=== PATIENT | female | born 1925 | race Caucasian/White ===

== ENCOUNTER 2016-07-13 08:38 | Inpatient (IN) | payer MEDICARE ==
[2016-07-14] MEDS: ACETAMINOPHEN 500 MG TABLET PO PRN (08:00)
--- NOTE | 2016-07-14 08:48 | Rehab Evaluation ---
Patient Information - Patient Information Diagnosis: Fall, Atrial Fibrillation, Dehydration Ordered Treatment: OT Evaluate and Treat Status: Initial Evaluation History: Detail (Patient admitted to on 07/13/16 for further functional improvment and strengthening in order to return home safely.) Past Med/Umesh Hx Detail: Detail (Pt received pin insertion through R hip w/ pins now placing pressure through acetabulum causing increased pain during sit<> stand t/f's.) Past Medical/Surgical Hx: PAST MEDICAL/SURGICAL HISTORY Past Surgical History R Hip surgery with pins placed 2004; Upper back surgery-non malignant tumor-spine? ; PMH - Respiratory Hx Respiratory Disorders No PMH - Cardiovascular Hx Cardiovascular Disorders No Comment: A-Fib found today/unknown onset PMH - Neuro Hx Neurological Disorders No PMH - GI Hx Gastrointestinal Disorders No PMH - Hx Genitourinary Disorders No PMH - Endocrine Hx Endocrine Disorders No PMH - Musculoskeletal Hx Musculoskeletal Disorders Yes Hx Arthritis Yes PMH - Psych Hx Psychiatric Problems No PMH - Hematology/Oncology Hx Hematology/Oncology No Disorders Premorbid Status: Detail (Patient reports to have fallen in driveway in past that resulted in hip replacement. Patient reports that she was doing well after hip sx and was able to complete all ADL's prior to admission.) Social History: Detail (Patient lives alone in a 2 story farmhouse with 40 acres. She has 2 steps to enter with a railing on one side. Bedroom and bathroom are on main floor of home. She has a tub/shower combo with shower chair but usually stands to shower. There are no grab bars in bathroom and patient has a standard toilet. Ambulates using quad cane at home but started using 2 canes to amb within the home. Patient reports she was ind w/ all home mgmt, meal prep, and laundry. She has 1 daughter who is willing to assist if needed but prefers to remain ind.) Precautions: [place], Fall - Time With Patient Total Time Spent With Patient (Min): 35 Subjective Information - Subjective Information Per Patient Objective Data - Pain Pain Present: Yes (could not rate. Pain in R hip w/ sit<>stand t/f's. Resolved per patient report once sitting.) - Mental Status Patient Orientation: Oriented x3 - Visual Perception Appears within normal limits for therapeutic activities - ROM Not within normal limits (Limited with B shld flex & digit ROM as well as opposition.) - Strength/Tone Not within normal limits (B shld flex and ext: 3+/5; Elbow flex/ext 4-/5 B. 3+/ 5 B shld abd; Weakness B gross grasp.) - Coordination Appears within normal limits for therapeutic activities - Bed Mobility Needs Assist (Pt required min A for lifting upper body off bed in transition from supine to SS EOB.) - Transfers Needs Assist (Min A and mod v/c's for hand placement when using walker when moving SS EOB into Standing w/ 2 WW. Gait belt used throughout evaluation.) - Balance Balance Sitting: Fair Balance Standing: Fair - Sensation Intact - Gait Detail (Pt amb w/ 2WW and CGA to and from Bathroom for drsg/toileting.) - ADL's/IADL's Detail (Pt was sleeping upon arrival but willing to participate once awoken. Patient stating throughout evaluation "I feel weaker today. I was walking and moving much better yesterday." Ind w/ gown removal once ties undone. Ind w/ t- shirt don. Dep underpant (brief)/pant don (however, patient appeared more fatigued today and was donning tight legging type pants. She may require less assistance then documented here. Will continue to assess). Amb SS EOB <> raised commode over toilet seat in BR. Pt stated she didn't have to use bathroom after all. Ind w/ brief/pant laborer pullet farm hips w/ v/c's to maintain one hand on walker 2 ^ postural sway and decreased safety with no UE support. Pt refused teeth brushing, hair care at this time.) Therapy Assessment - Therapy Assessment Detail (Pt presents with decreased functional status in ADLs, decreased mobility , decreased balance, decreased knowledge of safety with walker use, and BUE weakness. She would benefit from further OT to address limitations in UE strength and decreased ADL status.) Problem List - Problem List Occupational Therapy Problem List: Detail (1. decreased ind w/ ADLs 2. weakness BUE 3. decreased ind w/ bed mob 4. decreased endurance) Goals - Goals Occupational Therapy Goals: 1. Pt to be ind w/ toileting. 2. Pt to be ind w/ LB drsg with AD if needed. 3. Pt to be ind to walk household distances using 2WW. 4. Pt to be ind w/ bed mobility. 5. Pt to be grossly 4/5 MMT BUE within available ROM Prognosis - Prognosis Good Plan - Plan Occupational Therapy Plan: Patient to be seen by OT 2-4x a week M-F
--- NOTE | 2016-07-14 09:28 | Rehab Evaluation ---
Patient Information - Patient Information Diagnosis: Fall, Atrial Fibrillation, Dehydration Ordered Treatment: PT Evaluate and Treat Status: Initial Evaluation History: Detail (Patient admitted to on 07/13/16 for further functional improvment and strengthening in order to return home safely.) Past Med/Umesh Hx Detail: Detail (Pt received pin insertion through R hip w/ pins now placing pressure through acetabulum causing increased pain during sit<> stand t/f's.) Past Medical/Surgical Hx: PAST MEDICAL/SURGICAL HISTORY Past Surgical History R Hip surgery with pins placed 2004; Upper back surgery-non malignant tumor-spine? ; PMH - Respiratory Hx Respiratory Disorders No PMH - Cardiovascular Hx Cardiovascular Disorders No Comment: A-Fib found today/unknown onset PMH - Neuro Hx Neurological Disorders No PMH - GI Hx Gastrointestinal Disorders No PMH - Hx Genitourinary Disorders No PMH - Endocrine Hx Endocrine Disorders No PMH - Musculoskeletal Hx Musculoskeletal Disorders Yes Hx Arthritis Yes PMH - Psych Hx Psychiatric Problems No PMH - Hematology/Oncology Hx Hematology/Oncology No Disorders Premorbid Status: Detail (Patient reports to have fallen in driveway in past that resulted in hip replacement. Patient reports that she was doing well after hip sx and was able to complete all ADL's prior to admission.) Social History: Detail (Patient lives alone in a 2 story farmhouse with 40 acres. She has 2 steps to enter with a railing on one side. Bedroom and bathroom are on main floor of home. She has a tub/shower combo with shower chair but usually stands to shower. There are no grab bars in bathroom and patient has a standard toilet. Ambulates using quad cane at home but started using 2 canes to amb within the home. Patient reports she was ind w/ all home mgmt, meal prep, and laundry. She has 1 daughter who is willing to assist if needed but prefers to remain ind.) Precautions: [place], Fall - Time With Patient Total Time Spent With Patient (Min): 25 Treatment Procedures: Detail (PT Initial Evaluation) Subjective Information - Subjective Information Per Patient (The patient complains of a "funny sensation and soreness in R hip and lower back, not pain".) Objective Data - Mental Status Patient Orientation: Oriented x3 - ROM Not within normal limits (The patient has bilateral hip PROM limitations. R hip flexion aprox. 45 degrees, abduction 5 degrees, IR And ER 0 degrees, L hip flexion aprox 65 degrees, ER and IR 5 to 10 degrees, abduction 10 to 15 degrees. Knee and ankle ROM are WFL.) - Strength/Tone Not within normal limits (LE strength is as follows as tested in a seated position and within range of motion limitations: Bilateral hip adductiors 4+/5 , R hip abductors 3+/5, L 4/5, R hip flexors 3-/5, L 3+/5, hip rotators and extensors were NT, B knee flexors 3/5, B knee extensors 4+/5,B ankle dorsiflexors 4+/5.) - Bed Mobility Needs Assist (The patient is able to achieve sit to supine independently. The patient required Mod PA of 2 for scooting up in bed.) - Transfers Needs Assist (The patient requires CG/minimal PA with sit to and from stand transfer, in part due to hip ROM limitations.) - Balance Balance Sitting: Fair (The patient is able to sit without support but leans back with her trunk due to hip ROM limitations.) Balance Standing: Poor (The patient used a front wheeled walker for support when standing.) - Gait Detail (The patient ambulated with wheeled walker with CG of safety 75 feet x 1. The pateint's gait pattern is characterized by toeing out, decreased weight bearing on the R and forward trunk lean.) Therapy Assessment - Therapy Assessment Detail (The patient presents to PT with decreased LE strength, decreased hip AROM, impaired balance,gait deviations, and difficlty with transfers. The patient is highly motivated to return to home. The patient may have some mobility limitations due to decreased hip ROM.) Problem List - Problem List Physical Therapy Problem List: Detail (1) LE weakness 2) Loss of LE ROM 3) Assistance with transfers and bed mobility 4) Limited ambulation distance and transfers 5) Impaired Balance) Goals - Goals Physical Therapy Goals: 1) The patient will ambulate independently /supervision with wheeled walker distances of 150 feet plus. 2) The patient will be independent with alltransfers. 3) The patient will safely ambulate 2 stairs with CG of 1. 4) Increase LE strength by 1/3 to 1 full muscle grade. 5) Formally assess the patient's balance if tolerated. Prognosis - Prognosis Good (To reach PT goals.) Plan - Plan Physical Therapy Plan: PT M-F 1 to 2 times a day for LE strengthening, ROM and balance exercises, transfer training, bed mobility and gait training.
[2016-07-14] MEDS: ASPIRIN 81 MG TABEC PO SCH (09:59)
--- NOTE | 2016-07-14 22:05 | History & Physical ---
History of Present Illness - Date Date of Service for History & Physical: 07/14/16 - History of Present Illness Admitting Diagnosis: deconditioning due to weakness and pain History of Present Illness: 89yo F transitioned to sub acute rehab for continuing work with PT/OT. Patient initially suffered a fall in her home 07/10/16 Patients had not following with a primary care provider in many years; patient reported last seeing provider in 2006 or 2007. Since hospital admission pt has newly established with [facility] family practice clinic for primary care. Patient denies health problems at her baseline but does report history of fall 11year ago resulting in right hip replacement; due to this injury patient suffers from chronic bilateral hip (worse in right hip) and pelvic pain. Patient [place]. At patients baseline she is independent will all acts of daily living but over the last few months she has had difficulty showering and cleaning her home. Patient has a daughter that frequently tries to reach out to help her mother but patient is stubborn and has even gone to the extreme of locking her daughter out of her home. Patient and family are very concerned about patients fall risk and safety at home when she is this weak. Patient presented to [facility] ED after a fall in her home on 07/10/16. Fracture was ruled out through imaging studies. But upon cardiac evaluation patient was found to be in atrial fibrillation; because pt had not seen a provider in many years it was unknown of a-fib was acute onset or chronic. [facility] cardiology Dr. Sanders consulted for a-fib; per cardiology recommendation patient is to continue daily ASA but is not a good candidate for further anticoagulation, rhythm or rate control; out-patient echocardiogram recommended to determine patients baseline. Over hospital admission PT/OT was consulted due to patients weakness and bilateral hip pain. After therapy evaluation it was noted that patient would likely benefit from continued therapy and was a good candidate for YENY. Today patient continues to feel weak but is looking forward to starting PT/OT. After discussion with patient and her daughter the goal at this time will be for patient to return home to independent living after YENY is finished. Goals will be to build strength and endurance through work with PT/OT; nutrition consult; establish with PCP ([facility] family practice); coordinate out-patient follow up with specialties when appropriate. Vitals WNL. Labs continue to show elevated BUN 34 and Cr 1.3; otherwise labs are grossly unremarkable for acute process. PCP: [facility] family practice (newly established patient) General - Cognitive Patterns Speech: Soft Thought Process: Intact Thought Content: Normal Orientation: Oriented x3 - Communication Preferred Language?: [place] [employer] Required: No Level of Education: Grade 9-11 Preferred Method of Learning: Seeing, Doing Comprehension Ability: No Impairment Able to Read: Yes Able to Write: Yes Select best description of speech pattern: Clear Speech Ability to express ideas and wants: Usually Understood Understanding verbal content: Usually Understands - Mood and Behavior Patterns Appearance: Well Groomed Mood: Normal Attitude: Cooperative Motor Activity: Calm Affect: Appropriate Hallucinations: Denies - Psychosocial Well-Being Usual Living Arrangement: Alone - Physical Functioning Activity Level: Up with assist x1 Turning: Self ad janelle ROM Ability: Moves all extremities Assistive Devices: 2 Wheel Walker Ambulation Ability: Needs Assist Bed Mobility: Independent Transfer Ability: Needs Assist Bathing Ability: Needs Assist Personal Hygiene: Needs Assist Dressing Ability: Needs Assist Eating (Feeding) Ability: Independent Toileting Ability: Needs Assist Administer Own Medication: Needs Assist - Continence Bowel Pattern: Constipated Bladder Pattern: Normal - Dental Status Unable to examine: No Broken or loosely fitting full or partial dentures: No No natural teeth or tooth fragment(s) (edentulous): No Abnormal mouth tissue (ulcers, masses, oral lesions, etc.): No Obvious or likely cavity or broken natural teeth: No Inflamed or bleeding gums or loose natural teeth: No Mouth/facial pain, discomfort or difficulty chewing: No - Nutrition Screening Poor oral intake > 1 week: No Unplanned weight loss in specified time frame: No Nutrition Support via tube feedings or parenteral nutrition: No Pressure Ulcer: No Significantly underweight define as BMI <18.5 kg/m2: No Albumin <2.5mg/dL: No Persistent nausea/vomiting/diarrhea >3 days: No Difficulty chewing/swallowing/mouth sores: No Admitting Diagnosis: No Nutrition Risk Score: Low Risk Review of Systems Constitutional: Reports: As per HPI, Weakness. Denies: Chills, Fever, Malaise, Night sweats Eyes: Reports: As per HPI. Denies: Eye discharge, Eye pain ENT: Reports: As per HPI, Hearing loss. Denies: Congestion, Ear pain, Throat pain Respiratory: Reports: As per HPI. Denies: Cough, Dyspnea, Wheezes Cardiovascular: Reports: As per HPI. Denies: Chest pain, Edema, Palpitations Endocrine: Reports: As per HPI, Fatigue. Denies: Polydipsia, Polyuria Gastrointestinal: Reports: As per HPI. Denies: Abdominal pain, Nausea, Vomiting Genitourinary: Reports: As per HPI. Denies: Dysuria Musculoskeletal: Reports: As per HPI, Arthralgia, Back pain, Other (bilateral hip pain, worse in right hip ) Skin: Reports: Other (chronic lower extremity skin changes). Denies: Change in color, Pruritus, Rash Neurological: Reports: As per HPI, Abnormal gait (patient needs assitance with rising from seated position and transfers. Pt able to ambulate short distance with use of walker ), Weakness. Denies: Headache, Numbness, Tingling Psychiatric: Denies: Anxiety Hematological/Lymphatic: Denies: Blood Clots, Easy bleeding Past Medical History - SOCIAL HISTORY Smoking Status: Former smoker - SURGICAL HISTORY Past Surgical History: R Hip surgery with pins placed 2004; Upper back surgery- non malignant tumor-spine? ; - RESPIRATORY Hx Respiratory Disorders: No - CARDIOVASCULAR Hx Cardio Disorders: No Comment:: A-Fib found today/unknown onset - NEURO Hx Neuro Disorders: No - GI Hx GI Disorders: No - Hx Genitourinary Disorders: No - ENDOCRINE Hx Endocrine Disorders: No - MUSCULOSKELETAL Hx Musculoskeletal Disorders: Yes Hx Arthritis: Yes - PSYCH Hx Psych Problems: No - HEMATOLOGY/ONCOLOGY Hx Hematology/Oncology Disorders: No Family Medical History Any Significant Family History?: No Family Hx Comment (NOT TO BE USED IN PLACE OF ITEMS BELOW): unknown H&P Meds/Allergies - Allergies Allergies: Allergies Allergy/AdvReac Type Severity Reaction Status Date / Time Unable to Assess Allergy Unverified 07/10/16 19:07 - Home Medications Previous Rx's Medication Instructions Recorded Acetaminophen [Tylenol 500Mg Tab] 1,000 mg PO Q6H PRN #0 tablet 07/13/16 Aspirin Enteric-Coated [Ecotrin 81 mg PO DAILY tabec 07/13/16 (EC)] - Active Medications Active Medications: Current Medications Acetaminophen (Tylenol 500mg Tab) 1,000 mg PO Q6H PRN PRN Reason: PAIN/TEMP Last Admin: 07/14/16 08:00 Dose: 1,000 mg Aspirin (Ecotrin (Ec)) 81 mg PO DAILY TINY Last Admin: 07/14/16 09:59 Dose: 81 mg Physical Exam - Vital Signs Vital Signs: Vital Signs - Last 24 Hrs Temp Pulse Resp BP BP Pulse Ox 07/14/16 13:01 97.7 F 110/70 07/14/16 08:55 97.7 F 83 17 110/70 99 - General General Appearance: Alert, Oriented x3, Cooperative, No acute distress, Other ( cachectic appearance ) Limitations: No limitations - Head Head exam detail: negative: Abrasion, Contusion - Eye Eye exam: Normal appearance, EOMI. negative: Conjunctival injection Pupils: Normal accommodation - ENT ENT exam: Normal exam, Mucous membranes moist, Normal external ear exam, Normal orophraynx. negative: Mucous membranes dry Ear exam: Normal external inspection, External canal tenderness Nasal Exam: Normal inspection. negative: Active bleeding, Discharge, Sinus tenderness Mouth exam: Normal external inspection, Tongue normal. negative: Drooling Teeth exam: Dental caries, Other (poor dentition ) - Neck Neck exam: Normal inspection, Full ROM. negative: Tenderness - Respiratory Respiratory exam: Normal lung sounds bilaterally. negative: Accessory muscle use, Chest wall tenderness, Respiratory distress, Wheezes - Cardiovascular Cardiovascular Exam: Regular rate, Normal heart sounds, Irregular rhythm (a-fib) Peripheral Pulses: 2+: Radial (L) - GI/Abdominal GI/Abdominal exam: Soft, Normal bowel sounds. negative: Distended, Guarding, Tenderness - Rectal Rectal exam: Deferred - exam: Deferred - Extremities Extremities exam: Normal inspection, Tenderness (right hip), Other (chronic skin changes on bilateral lower legs ). negative: Calf tenderness - Back Back exam: Reports: Normal inspection. Denies: Rash noted - Neurological Neurological exam: Abnormal gait (patient currently 2person assist to stand from sitting position ), Alert, CN II-XII intact, Oriented X3 - Psychiatric Psychiatric exam: Normal affect, Normal mood - Skin Skin exam: Dry, Intact, Normal color, Warm. negative: Cyanosis, Diaphoretic Discharge Potential - Discharge Needs Community Services Used Prior to Admission: None Patient Discharge Plan Description: Return Home Community Services Needed at Discharge: Home Health Nurse Plan - Swing Bed Certification Initial Certification Due: 07/13/16 14 Day Re-Cert Due: 07/27/16 44 Day Re-Cert Due: 08/26/16 74 Day Re-Cert Due: 09/25/16 - Detailed Diagnosis and Plan (1) Generalized weakness Current Visit: No Status: Acute Base Code: R53.1 - WEAKNESS Comment: 07/14/16: - PT/OT evaluation done 07/12/16. Patient continue to participate in therapy Sun-Sun. Goals will be to improve strength, balance, gate , and general mobility - Patients insurance will cover 7days to 2weeks of sub acute rehab. - Nutritional consult done during in-pt stay. Patient continues to drink nutritional shakes frequently. (2) Chronic right hip pain Current Visit: No Status: Acute Base Code: M25.551 - PAIN IN RIGHT HIP; G89.29 - OTHER CHRONIC PAIN Comment: 07/14/16: - Patient continues to complain of chronic righ hip and pelvic pain; she states it is difficult to find a comfortable position - Bilateral hip and pelvic xray showed post operative changes likely due to old hip; severe arthritic changes with a bone on bone appearance; one fixation screw may now extend into right acetabulum - Patient will participate in PT/OT Mon-Sun - Tylenol 1000mg q6h PRN ordered for pain but patient does not like to take medications and rarely takes the Tylenol. Patient has been enouraged to take a dose of Tylenol before PT/OT so that participation is not as painful - Patient scheduled for out-patient appointment with orthopedics Dr. Newby on 07/27/16 @12:30pm (3) Atrial fibrillation Current Visit: No Status: Acute Qualifiers: Atrial fibrillation type: unspecified Qualified Code(s): I48.91 - Unspecified atrial fibrillation Base Code: I48.91 - UNSPECIFIED ATRIAL FIBRILLATION Comment: 07/14/16: - likely chronic. Unchanged since hospital admission. - Cardiology Dr. Sanders evaluated patient on 07/11. Per cardiology recommendation will continue daily ASA - echocardiogram scheduled as an out-patient on 07/19/16 @12:30pm - patient continues to deny chest pain, SOB or palpitations (4) DVT prophylaxis Current Visit: No Status: Acute Base Code: [id number] - Comment: 07/14/16: SCDs ordered to be worn while pt in bed. Will also continue to encourage frequent ambulation (5) Skin texture changes Current Visit: Yes Status: Acute Base Code: R23.4 - CHANGES IN SKIN TEXTURE Comment: 07/14/16: Patient has chronic skin changes on bilateral lower extremities. - Patient will need appt with podiatry as an out-pt. Referral can be made through [facility]. Recommend specialty clinic or Dr. Mckeon office in [place], [place] (6) Overgrown toenails Current Visit: Yes Status: Acute Base Code: L60.2 - ONYCHOGRYPHOSIS Comment: 07/14/16: see above (7) Full code status Current Visit: No Status: Acute Base Code: Z78.9 - OTHER SPECIFIED HEALTH STATUS Comment: 07/14/16: Patient will remain full code status during current hospitalization
[2016-07-15] MEDS: ACETAMINOPHEN 500 MG TABLET PO PRN (09:07)
[2016-07-15] MEDS: ASPIRIN 81 MG TABEC PO SCH (09:07)
[2016-07-16] MEDS: ACETAMINOPHEN 500 MG TABLET PO PRN (09:10)
[2016-07-16] MEDS: ASPIRIN 81 MG TABEC PO SCH (09:10)
--- NOTE | 2016-07-17 07:54 | Occupational Therapy Tx Note ---
Occupational Therapy Tx Note - Treatment Note Tolerated: Fair Total Time Spent With Patient: 20 (ADL) Occupational Therapy Treatment Note: Detail (S: Pt up in recliner chair. O: Pt able to doff gown with assist to untie. Donned shirt with verbal cues, donned sweatpants with assist to start over both feet and pull partially up legs. Mod assist for sit to stand with walker and verbal cues. Pt leans back when attempting to stand. Pt able to static stand with walker and pull pants over hips. Max assist for slippers. A: Shivam hip/leg pain limiting patients ability to bend forward, mod assist for sit to stand, mod assist for LE dressing ) Occupational Therapy Problem List: Detail (1. decreased ind w/ ADLs 2. weakness BUE 3. decreased ind w/ bed mob 4. decreased endurance) Occupational Therapy Goals: 1. Pt to be ind w/ toileting. 2. Pt to be ind w/ LB drsg with AD if needed. 3. Pt to be ind to walk household distances using 2WW. 4. Pt to be ind w/ bed mobility. 5. Pt to be grossly 4/5 MMT BUE within available ROM Prognosis: Moderate Occupational Therapy Plan: Patient to be seen by OT 2-4x a week M-F
[2016-07-17] MEDS: ASPIRIN 81 MG TABEC PO SCH (09:58)
[2016-07-17] MEDS: ACETAMINOPHEN 500 MG TABLET PO PRN (11:16)
[2016-07-17] MEDS: DOCUSATE SODIUM 100 MG CAPSULE PO SCH (12:13)
--- NOTE | 2016-07-17 14:25 | Physical Therapy Tx Note ---
Physical Therapy Tx Note - Treatment Note Physical Therapy Tx Note: Detail (Patient refused physical therapy treatment due to too tired and needs to sleep.) Physical Therapy Problem List: Detail (1) LE weakness 2) Loss of LE ROM 3) Assistance with transfers and bed mobility 4) Limited ambulation distance and transfers 5) Impaired Balance) Physical Therapy Goals: 1) The patient will ambulate independently /supervision with wheeled walker distances of 150 feet plus. 2) The patient will be independent with alltransfers. 3) The patient will safely ambulate 2 stairs with CG of 1. 4) Increase LE strength by 1/3 to 1 full muscle grade. 5) Formally assess the patient's balance if tolerated. Physical Therapy Plan: PT M-F 1 to 2 times a day for LE strengthening, ROM and balance exercises, transfer training, bed mobility and gait training.
--- NOTE | 2016-07-17 20:51 | Swing Bed Certification/Recert ---
Initial Certification Due: 07/13/16 15 Day Re-Cert Due: 07/27/16 45 Day Re-Cert Due: 08/26/16 75 Day Re-Cert Due: 09/25/16 CERTIFICATION 3 CERTIFICATION OF PATIENT ADMISSION Required at time of admission. Due: 07/13/16 I certify that SNF services are required to be given on an inpatient basis because of the above named patient's need for prison care on a continuing basis for the condition(s) for which he/she was receiving inpatient hospital services prior to his/her transfer to the SNF. The patient's current needs for skilled care includes: [weakness, fall risk, need for daily PT/OT, chronic hip pain] Daniella Zamora 07/17/16
[2016-07-18 06:21] LABS: BASO % 0.7 % (0-6); EOS % 2.3 % (0-6); GRAN % 60.4 % (47-80); HEMATOCRIT 31.3 % (35.0-47.0); HEMOGLOBIN 9.9 gm/dl (11.6-16.0); LYMPH % 27.6 % (16-45); MEAN CELL VOLUME 94.3 fl (81-97); MEAN CORPUSCULAR HEMOGLOBIN 29.8 pg (27-33); MEAN CORPUSCULAR HGB CONC 31.6 g/dl (32-36); MEAN PLATELET VOLUME 10.2 fl (7.4-10.4); PLATELET COUNT 333 K/uL (130-400); RED BLOOD COUNT 3.32 M/uL (3.80-5.40); WHITE BLOOD COUNT W/O DIFF 7.3 K/uL (4.2-12.2)
[2016-07-18 06:33] LABS: ALB/GLOB RATIO 1.1 (1.1-1.8); ANION GAP 11.5 (7-16); BILIRUBIN,TOTAL 0.33 mg/dL (0.2-1.3); CARBON DIOXIDE 26.5 mmol/L (22-30); CREATININE 1.2 mg/dL (0.52-1.04); TOTAL PROTEIN 5.7 gm/dL (6.3-8.2)
--- NOTE | 2016-07-18 08:30 | Occupational Therapy Tx Note ---
Occupational Therapy Tx Note - Treatment Note Tolerated: Good, Fair Total Time Spent With Patient: 35 (ADL) Occupational Therapy Treatment Note: Detail (S: Pt supine in bed, ready to get up. O: Supine to sit with hospital bed rails, Indly. Sit to stand Indly with use of bed rail and walker. Amb to bathroom with CG assist and pulled down briefs with CG assist for balance. Pt able to sit with use of grab bar on wall. Toileted Indly. Doffed briefs with assist to anchor tack puller feet, donned clean briefs with assist to start over feet and lower legs. Stood from commode with mod difficulty with use of grab bar. Stood and pulled up briefs with CG assist, amb to sink with walker and had a small loss of balance. Able to wash face, hands at sink in standing. Amb back to chair with walker. Doffed gown with assist to untie, donned shirt Indly. Education provided re: use of wood planer for LE dressing. Pt able to don pants with wood planer and mod verbal cues , min physical assist. Sit to stand with min assist and pulled up pants Indly. Donned sock type slippers with max assist. A: Decreased balance with standing and gait, requires use of grab bar for sit to stand due to hip stiffness and pain, cont with LE ADL training with adaptive equipment) Occupational Therapy Problem List: Detail (1. decreased ind w/ ADLs 2. weakness BUE 3. decreased ind w/ bed mob 4. decreased endurance) Occupational Therapy Goals: 1. Pt to be ind w/ toileting. 2. Pt to be ind w/ LB drsg with AD if needed. 3. Pt to be ind to walk household distances using 2WW. 4. Pt to be ind w/ bed mobility. 5. Pt to be grossly 4/5 MMT BUE within available ROM Prognosis: Good Occupational Therapy Plan: Patient to be seen by OT 2-4x a week M-F
[2016-07-18] MEDS: DOCUSATE SODIUM 100 MG CAPSULE PO SCH (09:36)
[2016-07-18] MEDS: ASPIRIN 81 MG TABEC PO SCH (09:36)
[2016-07-18] MEDS: ACETAMINOPHEN 500 MG TABLET PO PRN (09:37)
--- NOTE | 2016-07-18 14:23 | Physical Therapy Tx Note ---
Physical Therapy Tx Note - Treatment Note Tolerated: Fair Total Time Spent With Patient: 20 Physical Therapy Tx Note: Detail (The patient was reluctant to participate in PT , however with encouragement of daughter, the patient got up for lunch. The patient was able to acheive supine to sit independently with use of railing. The patient required moderate PA sit to stand . The patient ambulated with CG of 1 with wheeled walker a distance of 5 feet x 1. The patient completed LE strengthening exercises including heelsides, LAQ , ankle pumps, hip abduction and adductor squeezes seated, all x 5 - 10 reps.) Physical Therapy Problem List: Detail (1) LE weakness 2) Loss of LE ROM 3) Assistance with transfers and bed mobility 4) Limited ambulation distance and transfers 5) Impaired Balance) Physical Therapy Goals: 1) The patient will ambulate independently /supervision with wheeled walker distances of 150 feet plus. 2) The patient will be independent with alltransfers. 3) The patient will safely ambulate 2 stairs with CG of 1. 4) Increase LE strength by 1/3 to 1 full muscle grade. 5) Formally assess the patient's balance if tolerated. Physical Therapy Plan: PT M-F 1 to 2 times a day for LE strengthening, ROM and balance exercises, transfer training, bed mobility and gait training.
--- NOTE | 2016-07-18 17:03 | Physical Therapy Tx Note ---
Physical Therapy Tx Note - Treatment Note Tolerated: Good Total Time Spent With Patient: 20 Physical Therapy Tx Note: Detail (The patient was awake in bed when PT arrived. The patient acheived supine to sit with minimal PA. The patient achieved sit to stand transfer with minimal to moderate PA, (the patient tends to lean back. ) The patient ambulated with wheeled walker 25 feet x 1 and 10 feet x1 with supervision, CG for safety . The patient was left up in chair with call light in reach. Nursing staff was notified.) Physical Therapy Problem List: Detail (1) LE weakness 2) Loss of LE ROM 3) Assistance with transfers and bed mobility 4) Limited ambulation distance and transfers 5) Impaired Balance) Physical Therapy Goals: 1) The patient will ambulate independently /supervision with wheeled walker distances of 150 feet plus. 2) The patient will be independent with alltransfers. 3) The patient will safely ambulate 2 stairs with CG of 1. 4) Increase LE strength by 1/3 to 1 full muscle grade. 5) Formally assess the patient's balance if tolerated. Physical Therapy Plan: PT M-F 1 to 2 times a day for LE strengthening, ROM and balance exercises, transfer training, bed mobility and gait training.
[2016-07-19] MEDS: ASPIRIN 81 MG TABEC PO SCH (09:03)
[2016-07-19] MEDS: ACETAMINOPHEN 500 MG TABLET PO PRN (09:03)
[2016-07-19] MEDS: DOCUSATE SODIUM 100 MG CAPSULE PO SCH (09:03)
--- NOTE | 2016-07-19 11:48 | Physical Therapy Tx Note ---
Physical Therapy Tx Note - Treatment Note Tolerated: Good Total Time Spent With Patient: 30 Physical Therapy Tx Note: Detail (The patient was up in chair when PT arrived. PT assisted patient in dressing. The patient was independent with upper body dressing and required assist with pants . The patient was able to pull up pants in standing with cg for safety. The patient continues to require moderate PA of 1 for stand to sit and cg and verbal cues for sit to stand. The patient ambulated 13 feet x 1 with CG for safety. The patient completed LE exercises seated including hip flexion x 5 reps, hip adductor squeezes , resisted hip abduction, LAQ, hamstring curls, ankle pumps all x 10 reps. The patient exhibited improved endurance for activity this am.) Physical Therapy Problem List: Detail (1) LE weakness 2) Loss of LE ROM 3) Assistance with transfers and bed mobility 4) Limited ambulation distance and transfers 5) Impaired Balance) Physical Therapy Goals: 1) The patient will ambulate independently /supervision with wheeled walker distances of 150 feet plus. 2) The patient will be independent with alltransfers. 3) The patient will safely ambulate 2 stairs with CG of 1. 4) Increase LE strength by 1/3 to 1 full muscle grade. 5) Formally assess the patient's balance if tolerated. Physical Therapy Plan: PT M-F 1 to 2 times a day for LE strengthening, ROM and balance exercises, transfer training, bed mobility and gait training.
--- NOTE | 2016-07-19 14:44 | Physical Therapy Tx Note ---
Physical Therapy Tx Note - Treatment Note Tolerated: Good Total Time Spent With Patient: 30 Physical Therapy Tx Note: Detail (Patient states right hip painful with movement. Patient transferred supine to sit independently. Patient transferred sit to and from stand CGA x1. Patient ambulated 13 feet with wheeled walker CGA x1. Patient transferred sit to and from stand CGA x1. Patient ambulated 13 feet with wheeled walker CGA x1. Patient performed the following exercises x10 reps each: seated marching, LAQ, seated heel raises, seated toe raises, adductor squeezes, dips, PNF D1 flexion diagonals with red theraband, PNF D1 extension diagonals with red theraband, and horizontal abduction with red theraband. Patient tolerated treatment well. Patient reports no increased complaints after treatment. Patient was left seated in chair with call light within reach.) Physical Therapy Problem List: Detail (1) LE weakness 2) Loss of LE ROM 3) Assistance with transfers and bed mobility 4) Limited ambulation distance and transfers 5) Impaired Balance) Physical Therapy Goals: 1) The patient will ambulate independently /supervision with wheeled walker distances of 150 feet plus. 2) The patient will be independent with alltransfers. 3) The patient will safely ambulate 2 stairs with CG of 1. 4) Increase LE strength by 1/3 to 1 full muscle grade. 5) Formally assess the patient's balance if tolerated. Prognosis: Good Physical Therapy Plan: PT M-F 1 to 2 times a day for LE strengthening, ROM and balance exercises, transfer training, bed mobility and gait training.
[2016-07-20] MEDS: ACETAMINOPHEN 500 MG TABLET PO PRN (09:15)
[2016-07-20] MEDS: DOCUSATE SODIUM 100 MG CAPSULE PO SCH (09:15)
[2016-07-20] MEDS: ASPIRIN 81 MG TABEC PO SCH (09:15)
--- NOTE | 2016-07-21 09:44 | Occupational Therapy Tx Note ---
Occupational Therapy Tx Note - Treatment Note Tolerated: Fair Total Time Spent With Patient: 30 (ADL) Occupational Therapy Treatment Note: Detail (S: Pt awake and lying supine in bed. O: Supine to sit with use of bed rails and moderate difficulty. Sit to stand with significant difficulty due to decreased ability to bend forward at hips. Amb to bathroom with 2 wheeled walker and CG assist. Stand to sit with use of grab bar and toileted Indly on raised commode seat. Sit to stand from commode with grab bar and able to pull up briefs with CG assist. Amb to chair with walker and SBA. Doffed gown with assist to untie, donned shirt Indly, donned PJ bottoms with quality control operator and min verbal cues. Sit to stand with min assist and able to pull up pants with min assist. Pt very short of breath and fatigued with activity. A: Significant impairment of hip flexion limits Ind with sit to stand) Occupational Therapy Problem List: Detail (1. decreased ind w/ ADLs 2. weakness BUE 3. decreased ind w/ bed mob 4. decreased endurance) Occupational Therapy Goals: 1. Pt to be ind w/ toileting. 2. Pt to be ind w/ LB drsg with AD if needed. 3. Pt to be ind to walk household distances using 2WW. 4. Pt to be ind w/ bed mobility. 5. Pt to be grossly 4/5 MMT BUE within available ROM Prognosis: Moderate Occupational Therapy Plan: Patient to be seen by OT 2-4x a week M-F
[2016-07-21] MEDS: DOCUSATE SODIUM 100 MG CAPSULE PO SCH (11:01)
[2016-07-21] MEDS: ASPIRIN 81 MG TABEC PO SCH (11:01)
--- NOTE | 2016-07-21 16:04 | Physical Therapy Tx Note ---
Physical Therapy Tx Note - Treatment Note Tolerated: Good Total Time Spent With Patient: 20 Physical Therapy Tx Note: Detail (Patient was awake in bed side chair upon arrival for PT. Patient was mod assist+1 with sit to stand transfer. The patient ambulated on level surface with front wheeled walker and CGA+1 for ~25 feet. Patient reported that sit to stand transfer and ambulation was more challenging than last PT treatment. The patient was min assist with stand to sit transfer. The patient then completed the following seated LE exercises: marching X10 bilat, LAQ X10 Bilat, ankle pumps X10 bilat, hip adduction X10 bilat with pillow, hip abduction X10 with manual resistance from PT, hamstring curls X10 bilat with red theraband. Patient was left in bed side chair with LE' s elevated and nurse call light next to her.) Physical Therapy Problem List: Detail (1) LE weakness 2) Loss of LE ROM 3) Assistance with transfers and bed mobility 4) Limited ambulation distance and transfers 5) Impaired Balance) Physical Therapy Goals: 1) The patient will ambulate independently /supervision with wheeled walker distances of 150 feet plus. 2) The patient will be independent with alltransfers. 3) The patient will safely ambulate 2 stairs with CG of 1. 4) Increase LE strength by 1/3 to 1 full muscle grade. 5) Formally assess the patient's balance if tolerated. Physical Therapy Plan: PT M-F 1 to 2 times a day for LE strengthening, ROM and balance exercises, transfer training, bed mobility and gait training.
[2016-07-22] MEDS: DOCUSATE SODIUM 100 MG CAPSULE PO SCH (10:06)
[2016-07-22] MEDS: ASPIRIN 81 MG TABEC PO SCH (10:06)
[2016-07-23] MEDS: DOCUSATE SODIUM 100 MG CAPSULE PO SCH (10:53)
[2016-07-23] MEDS: ASPIRIN 81 MG TABEC PO SCH (10:53)
--- NOTE | 2016-07-24 07:43 | Occupational Therapy Tx Note ---
Occupational Therapy Tx Note - Treatment Note Tolerated: Good Total Time Spent With Patient: 20 (ADL) Occupational Therapy Treatment Note: Detail (S: Pt up in bathroom. O: Pt completed toileting Indly. She was able to stand at sink and wash hands Indly. Amb to chair with 2 wheeled walker and SBA. Doffed PJ bottoms with color artist Indly. Donned clean briefs and PJ bottoms with color artist and mild difficulty. She was able to recall correct dressing technique and complete dressing Indly. Sit to stand x 2 Indly although she continues to have difficulty with this due to decreased hip flexion. A: Modified Ind with donning/doffing pants using color artist, Sit to stand Ind although she continues to have difficulty with this due to hip flexion limitations.) Occupational Therapy Problem List: Detail (1. decreased ind w/ ADLs 2. weakness BUE 3. decreased ind w/ bed mob 4. decreased endurance) Occupational Therapy Goals: 1. Pt to be ind w/ toileting. 2. Pt to be ind w/ LB drsg with AD if needed. 3. Pt to be ind to walk household distances using 2WW. 4. Pt to be ind w/ bed mobility. 5. Pt to be grossly 4/5 MMT BUE within available ROM Prognosis: Good Occupational Therapy Plan: Patient to be seen by OT 2-4x a week M-F
[2016-07-24] MEDS: DOCUSATE SODIUM 100 MG CAPSULE PO SCH (10:46)
[2016-07-24] MEDS: ASPIRIN 81 MG TABEC PO SCH (10:47)
--- NOTE | 2016-07-24 15:43 | Physical Therapy Tx Note ---
Physical Therapy Tx Note - Treatment Note Tolerated: Good Total Time Spent With Patient: 30 Physical Therapy Tx Note: Detail (The patient was in bed when PT arrived. The patient acheived modified (with head of bed up) supine to sit with use of railing, independently, with gaurded movements due to hip pain. The patient was independent with sit to and from stand and ambulated to bathroom with wheeled walker with supervision for safety only. The patient was independent with toileting and with toilet transfer. The patient ambulated with wheeled walker a total of 75 feet x 1 with supervision for safety only. The patient was independent with stand to sit with complaints of R hip pain/" a funny sensation". The patient's hip AROM was unchanged. The patient has had some improvement with knee flexor strength from 3/5 to 3+/5. All other muscle group strength are unchanged. The patient has been more consistent with independence with bed mobility and transfers. The patient continues to have some difficulty with sit to stand due to limited hip ROM. The patient's ability to ambulate long distances is variable dependent on pain level in R hip.) Physical Therapy Problem List: Detail (1) LE weakness 2) Loss of LE ROM 3) Assistance with transfers and bed mobility 4) Limited ambulation distance and transfers 5) Impaired Balance) Physical Therapy Goals: 1) The patient will ambulate independently /supervision with wheeled walker distances of 150 feet plus. 2) The patient will be independent with alltransfers. 3) The patient will safely ambulate 2 stairs with CG of 1. 4) Increase LE strength by 1/3 to 1 full muscle grade. 5) Formally assess the patient's balance if tolerated. Physical Therapy Plan: PT M-F 1 to 2 times a day for LE strengthening, ROM and balance exercises, transfer training, bed mobility and gait training.
[2016-07-25] MEDS: ACETAMINOPHEN 500 MG TABLET PO PRN (09:47)
[2016-07-25] MEDS: ASPIRIN 81 MG TABEC PO SCH (09:47)
[2016-07-25] MEDS: DOCUSATE SODIUM 100 MG CAPSULE PO SCH (09:47)
--- NOTE | 2016-07-25 09:56 | Occupational Therapy Tx Note ---
Occupational Therapy Tx Note - Treatment Note Tolerated: Good Total Time Spent With Patient: 45 (ADL) Occupational Therapy Treatment Note: Detail (S: Pt supine, finishing breakfast. O: Supine to sit Ind with mod difficulty. Sit to stand with CG assist and amb to toilet with 2 wheeled walker and SBA. Toileted Indly, using grab bar to stand. Amb to shower bench with CG assist and walker. Doffed PJ bottoms, brief and slippers with detail supervisor and verbal cues. Doffed shirt Indly. Pt completed showering in sitting and standing with hand held shower, she was Ind with upper body, hair, hayes-area (with CG assist with standing), upper legs , attempted feet/lower legs with washcloth wrapped around detail supervisor. She was able to partially wash lower legs. Dried self Indly with assist for feet/lower legs. Sit to stand from bench with mod assist and amb to EOB with walker and CG assist. Donned shirt Indly, therapist donned slippers, briefs and pants as pt was very fatigued and not feeling well. Pt sit to supine with min assist. Combed hair Indly. A: Max assist for lower leg/feet bathing and dressing, mildly decreased balance today requiring CG assist.) Occupational Therapy Problem List: Detail (1. decreased ind w/ ADLs 2. weakness BUE 3. decreased ind w/ bed mob 4. decreased endurance) Occupational Therapy Goals: 1. Pt to be ind w/ toileting. 2. Pt to be ind w/ LB drsg with AD if needed. 3. Pt to be ind to walk household distances using 2WW. 4. Pt to be ind w/ bed mobility. 5. Pt to be grossly 4/5 MMT BUE within available ROM Prognosis: Good Occupational Therapy Plan: Patient to be seen by OT 2-4x a week M-F
--- NOTE | 2016-07-25 15:30 | Physical Therapy Tx Note ---
Physical Therapy Tx Note - Treatment Note Physical Therapy Problem List: Detail (1) LE weakness 2) Loss of LE ROM 3) Assistance with transfers and bed mobility 4) Limited ambulation distance and transfers 5) Impaired Balance) Physical Therapy Goals: 1) The patient will ambulate independently /supervision with wheeled walker distances of 150 feet plus. 2) The patient will be independent with alltransfers. 3) The patient will safely ambulate 2 stairs with CG of 1. 4) Increase LE strength by 1/3 to 1 full muscle grade. 5) Formally assess the patient's balance if tolerated. Physical Therapy Plan: PT M-F 1 to 2 times a day for LE strengthening, ROM and balance exercises, transfer training, bed mobility and gait training.
--- NOTE | 2016-07-25 15:40 | Physical Therapy Tx Note ---
Physical Therapy Tx Note - Treatment Note Tolerated: Good Total Time Spent With Patient: 20 Physical Therapy Tx Note: Detail (The patient was in bed when PT arrived. The patient was able to achieve supine to sit transfer independently. The patient had some difficulty with sitting balance on bed. The patient was CG for safety with sit to stand transfer. The patient ambulated a distance of 80 feet x 1 with supervision for safety only. The patient ambulated at a faster speed then initially. The patient returned to sit in a chair. The patient completed the following LE strengthening exercises: hip marching, LAQ, ankle pumps, hip adductor squeezes, hip abduction, hamstring curls, gluteal sets all x 10 reps. Call light was in reach and tray placed in front of patient.) Physical Therapy Problem List: Detail (1) LE weakness 2) Loss of LE ROM 3) Assistance with transfers and bed mobility 4) Limited ambulation distance and transfers 5) Impaired Balance) Physical Therapy Goals: 1) The patient will ambulate independently /supervision with wheeled walker distances of 150 feet plus. 2) The patient will be independent with alltransfers. 3) The patient will safely ambulate 2 stairs with CG of 1. 4) Increase LE strength by 1/3 to 1 full muscle grade. 5) Formally assess the patient's balance if tolerated. Physical Therapy Plan: PT M-F 1 to 2 times a day for LE strengthening, ROM and balance exercises, transfer training, bed mobility and gait training.
[2016-07-26] MEDS: DOCUSATE SODIUM 100 MG CAPSULE PO SCH (10:22)
[2016-07-26] MEDS: ASPIRIN 81 MG TABEC PO SCH (10:22)
[2016-07-26] MEDS: ACETAMINOPHEN 500 MG TABLET PO PRN (10:22)
--- NOTE | 2016-07-26 11:01 | Physician Progress Note ---
Subjective - Date Date of Progress Note: 07/26/16 - Admitting Diagnosis Diagnosis: deconditioning due to weakness and pain - Subjective Events since last encounter: sitting up in her chair comfortably. denies any concerns. strength improving per PT/OT care conference today with family. Nursing Care Plan Problem List Activity Intolerance (Swing Bed) Start: 07/13/16 15: 12 Freq: Status: Active Created 07/13/16 15:12 SS (Rec: 07/13/16 15:12 SS [id number]) Knowledge Deficit (Swing Bed) Start: 07/13/16 15: 12 Freq: Status: Complete Created 07/13/16 15:12 SS (Rec: 07/13/16 15:12 SS [id number]) Edit Status 07/24/16 16:39 SAF (Rec: 07/24/16 16:39 SAF [id number]) Active=>Complete Pain (Swing Bed) Start: 07/13/16 15: 12 Freq: Status: Active Created 07/13/16 15:12 SS (Rec: 07/13/16 15:12 SS [id number]) Risk For Falls (Swing Bed) Start: 07/18/16 04: 16 Freq: Status: Complete Created 07/18/16 04:16 MMN (Rec: 07/18/16 04:16 MMN [id number]) Edit Status 07/20/16 15:18 KMC (Rec: 07/20/16 15:18 KMC [id number]) Active=>Complete General - Cognitive Patterns Speech: Soft Thought Process: Intact Thought Content: Normal - Communication Select best description of speech pattern: Clear Speech Ability to express ideas and wants: Usually Understood Understanding verbal content: Usually Understands - Mood and Behavior Patterns Appearance: Well Groomed Mood: Normal Attitude: Cooperative Motor Activity: Calm Affect: Appropriate Hallucinations: Denies - Physical Functioning Activity Level: Up with assist x1 Turning: With partial assist ROM Ability: Moves all extremities Assistive Devices: 2 Wheel Walker Activity Level Comment: Walker at bedside. Ambulation Ability: Needs Assist Bed Mobility: Needs Assist Transfer Ability: Independent Bathing Ability: Independent Personal Hygiene: Independent Dressing Ability: Needs Assist Eating (Feeding) Ability: Independent Toileting Ability: Independent Administer Own Medication: Dependent - Continence Bowel Pattern: Normal for Patient Bladder Pattern: Normal Meds/Allergies - Allergies Allergies Allergy/AdvReac Type Severity Reaction Status Date / Time Unable to Assess Allergy Unverified 07/10/16 19:07 - Active Medications Current Medications Acetaminophen (Tylenol 500mg Tab) 1,000 mg PO Q6H PRN PRN Reason: PAIN/TEMP Last Admin: 07/26/16 10:22 Dose: 1,000 mg Aspirin (Ecotrin (Ec)) 81 mg PO DAILY [facility] Last Admin: 07/26/16 10:22 Dose: 81 mg Docusate Sodium (Colace) 100 mg PO DAILY [facility] Last Admin: 07/26/16 10:22 Dose: 100 mg Objective - Vital Signs Vital Signs: Vital Signs - Last 24 Hrs Temp Pulse Resp BP Pulse Ox 07/26/16 07:51 97.8 F 87 18 121/79 95 - General General Appearance: Alert, Oriented x3, Cooperative, No acute distress, Other ( cachectic appearance ) Limitations: No limitations - Head Head exam detail: negative: Abrasion, Contusion - Eye Eye exam: Normal appearance, EOMI. negative: Conjunctival injection Pupils: Normal accommodation - ENT ENT exam: Normal exam, Mucous membranes moist, Normal external ear exam, Normal orophraynx. negative: Mucous membranes dry Ear exam: Normal external inspection, External canal tenderness Nasal Exam: Normal inspection. negative: Active bleeding, Discharge, Sinus tenderness Mouth exam: Normal external inspection, Tongue normal. negative: Drooling Teeth exam: Dental caries, Other (poor dentition ) - Neck Neck exam: Normal inspection, Full ROM. negative: Tenderness - Respiratory Respiratory exam: Normal lung sounds bilaterally. negative: Accessory muscle use, Chest wall tenderness, Respiratory distress, Wheezes - Cardiovascular Cardiovascular Exam: Regular rate, Normal heart sounds, Irregular rhythm (a-fib) Peripheral Pulses: 2+: Radial (L) - GI/Abdominal GI/Abdominal exam: Soft, Normal bowel sounds. negative: Distended, Guarding, Tenderness - Rectal Rectal exam: Deferred - exam: Deferred - Extremities Extremities exam: Normal inspection, Tenderness (right hip), Other (chronic skin changes on bilateral lower legs ). negative: Calf tenderness - Back Back exam: Reports: Normal inspection. Denies: Rash noted - Neurological Neurological exam: Abnormal gait (patient currently 2person assist to stand from sitting position ), Alert, CN II-XII intact, Oriented X3 - Psychiatric Psychiatric exam: Normal affect, Normal mood - Skin Skin exam: Dry, Intact, Normal color, Warm. negative: Cyanosis, Diaphoretic H&P Results - Labs Result Diagrams: 07/18/16 05:50 07/18/16 05:50 Discharge Potential - Discharge Needs Community Services Used Prior to Admission: None Patient Discharge Plan Description: Return Home Community Services Needed at Discharge: Home Health Nurse Discharge Needs Comment: Spoke at length with pts daughter on phone-transfer from RN. Pts daughter expresses frustration with lack of disciplines present at Care Conference last week and indicates that promises were made that disciplines would be present. Reinforced to pts daughter that communication was provided that DRUGLESS DOCTOR and PA would not be able to be present, but attempts for other disciplines to give verbal updates at noon would be attempted. Pts daughter feels that that did not occur. Offered pts daughter Care Conference times of 900, 915, 930 and 945 for this Sunday and provided the alternative of speaker phone option if not able to be present. Pts daughter would like 945- scheduled. Pts daughter asked same questions multiple times-answered and reinforced "as discussed". Listened to pts daughters concerns with return to home. Provided options of NH, [place] and AFC to be explored. Pts daughter felt that her home may be an option, but then indicated that pt wanted to return to home at [place]. Pts daughter indicated pt was at [facility] in the past and asked if this was an option. Discussed that [facility] pulls from same benefit as , but that if pts daughter wanted to explore pt being moved to [facility], we could consider. Discussed that pts insurance will authorize days as needed. Plan - Swing Bed Certification Initial Certification Due: 07/13/16 14 Day Re-Cert Due: 07/27/16 44 Day Re-Cert Due: 08/26/16 74 Day Re-Cert Due: 09/25/16 - Detailed Diagnosis and Plan (1) Generalized weakness Current Visit: No Status: Acute Base Code: R53.1 - WEAKNESS Comment: 07/26/16: - Patient continues to participate in PT/OT Mon-Fri. Goals will be to improve strength, balance, gate, and general mobility - Hillary is working with insurance re how many days [facility] services with be allowed. - Nutritional consult done during in-pt stay. Patient continues to drink nutritional shakes frequently. - O/P ortho appt tomorrow at 1230. (2) Overgrown toenails Current Visit: Yes Status: Acute Base Code: L60.2 - ONYCHOGRYPHOSIS Comment: 07/26/16: see below plan under "skin changes." (3) Skin texture changes Current Visit: Yes Status: Acute Base Code: R23.4 - CHANGES IN SKIN TEXTURE Comment: 07/26/16: Patient has chronic skin changes on bilateral lower extremities. - Patient will need appt with podiatry as an out-pt. Referral can be made through [facility]. Recommend specialty clinic or Dr. Mckeon office in [place], [place] (4) Atrial fibrillation Current Visit: No Status: Acute Qualifiers: Atrial fibrillation type: unspecified Qualified Code(s): I48.91 - Unspecified atrial fibrillation Base Code: I48.91 - UNSPECIFIED ATRIAL FIBRILLATION Comment: 07/26/16: - likely chronic. Unchanged since hospital admission. - Cardiology Dr. Sanders evaluated patient on 07/11. Per cardiology recommendation will continue daily ASA - echocardiogram not available to review. will contact Dr. Sanders's office for results. - patient continues to deny chest pain, SOB or palpitations (5) Chronic right hip pain Current Visit: No Status: Acute Base Code: M25.551 - PAIN IN RIGHT HIP; G89.29 - OTHER CHRONIC PAIN Comment: 07/26/16: - Patient denies any pain at this time. She will continue to work w/ PT/OT. Appt with Dr. Newby re right hip pain tomorrow at 1230. - Tylenol 1000mg q6h PRN ordered for pain but patient does not like to take medications and rarely takes the Tylenol. Patient has been enouraged to take a dose of Tylenol before PT/OT so that participation is not as painful (6) Full code status Current Visit: No Status: Acute Base Code: Z78.9 - OTHER SPECIFIED HEALTH STATUS Comment: 07/26/16: Patient is full code
--- NOTE | 2016-07-26 11:39 | Physical Therapy Tx Note ---
Physical Therapy Tx Note - Treatment Note Tolerated: Good Total Time Spent With Patient: 25 Physical Therapy Tx Note: Detail (Patient was awake in bed side chair with daughter in room upon arrival for PT. Patient was mod assist +1 with sit to stand transfer. Patient was taken to basement via wheelchair to practice ambulating a ramp due to patient's daughter reporting they plan to install a ramp in the patient's house. Patient ambulated ramp with CGA+1. Patient was then taken upstairs via wheelchair and performed the following supine exercises : glut sets X10, hip adduction with play ball X10, hip abduction X10 red theraband, SAQ X10 bilaterally. Patient was then CGA+1 with sit to stand transfer when getting up from mat table at 22" in height. Daughter was informed of patient performing sit to stand transfer at greater ease with table at 22". Patient was left in bed side chair with nurse call light next to her and daughter in the room.) Physical Therapy Problem List: Detail (1) LE weakness 2) Loss of LE ROM 3) Assistance with transfers and bed mobility 4) Limited ambulation distance and transfers 5) Impaired Balance) Physical Therapy Goals: 1) The patient will ambulate independently /supervision with wheeled walker distances of 150 feet plus. 2) The patient will be independent with alltransfers. 3) The patient will safely ambulate 2 stairs with CG of 1. 4) Increase LE strength by 1/3 to 1 full muscle grade. 5) Formally assess the patient's balance if tolerated. Physical Therapy Plan: PT M-F 1 to 2 times a day for LE strengthening, ROM and balance exercises, transfer training, bed mobility and gait training.
--- NOTE | 2016-07-26 16:09 | Physical Therapy Tx Note ---
Physical Therapy Tx Note - Treatment Note Tolerated: Good Total Time Spent With Patient: 35 Physical Therapy Tx Note: Detail (Patient states right hip feels better this afternoon. Patient states she has been feeling stronger. Patient transferred supine to sit independently. Patient transferred sit to and from stand CGA x1. Patient ambulated 106 feet with wheeled walker SBA x1. Patient performed the following exercises x15 reps each: seated hip flexion, seated hip abduction, isometric hip adduction, hamstring curls with red theraband, LAQ, seated heel raises, seated toe raises, rowing with red theraband, shoulder extension with red theraband, PNF D1 and D2 extension diagonals with red theraband, bicep curls with red theraband, tricep extension with red theraband, shoulder external rotation with red theraband, and shoulder horizontal abduction with red theraband. Patient tolerated treatment well. Patient reports feeling good after treatment. Patient was left seated in chair with call light within reach. ) Physical Therapy Problem List: Detail (1) LE weakness 2) Loss of LE ROM 3) Assistance with transfers and bed mobility 4) Limited ambulation distance and transfers 5) Impaired Balance) Physical Therapy Goals: 1) The patient will ambulate independently /supervision with wheeled walker distances of 150 feet plus. 2) The patient will be independent with alltransfers. 3) The patient will safely ambulate 2 stairs with CG of 1. 4) Increase LE strength by 1/3 to 1 full muscle grade. 5) Formally assess the patient's balance if tolerated. Prognosis: Good Physical Therapy Plan: PT M-F 1 to 2 times a day for LE strengthening, ROM and balance exercises, transfer training, bed mobility and gait training.
[2016-07-27] MEDS: DOCUSATE SODIUM 100 MG CAPSULE PO SCH (09:34)
[2016-07-27] MEDS: ASPIRIN 81 MG TABEC PO SCH (09:34)
--- NOTE | 2016-07-27 11:05 | Physical Therapy Tx Note ---
Physical Therapy Tx Note - Treatment Note Tolerated: Good Total Time Spent With Patient: 30 Physical Therapy Tx Note: Detail (Patient states right posterior hip sore today and tired. Patient transferred supine to sit independently. Patient transferred sit to and from stand CGA x1. Patient ambulated 134 feet with wheeled walker SBA x1. Patient performed the following exercises x10 reps: standing heel raises, standing toe raises, hamstring curls with red theraband, LAQ, seated hip flexion, seated hip abduction, isometric hip adduction, rowing with red theraband, shoulder extension with red theraband, shoulder internal rotation with red theraband, shoulder external rotation with red theraband, horizontal abduction with red theraband, glut squeezes, and abdominal isometrics. Patient transferred sit to supine independently. Patient tolerated treatment well. Patient reports tired after treatment. Patient was left supine in bed with call light within reach.) Physical Therapy Problem List: Detail (1) LE weakness 2) Loss of LE ROM 3) Assistance with transfers and bed mobility 4) Limited ambulation distance and transfers 5) Impaired Balance) Physical Therapy Goals: 1) The patient will ambulate independently /supervision with wheeled walker distances of 150 feet plus. 2) The patient will be independent with alltransfers. 3) The patient will safely ambulate 2 stairs with CG of 1. 4) Increase LE strength by 1/3 to 1 full muscle grade. 5) Formally assess the patient's balance if tolerated. Prognosis: Good Physical Therapy Plan: PT M-F 1 to 2 times a day for LE strengthening, ROM and balance exercises, transfer training, bed mobility and gait training.
--- NOTE | 2016-07-27 15:22 | Physical Therapy Tx Note ---
Physical Therapy Tx Note - Treatment Note Tolerated: Good Total Time Spent With Patient: 30 Physical Therapy Tx Note: Detail (Patient states right hip sore this afternoon. Patient transferred sit to and from stand min assist x1. Patient ambulated 5 feet with wheeled walker CGA x1. Patient performed the following exercises x10 reps each: LAQ, seated hip flexion, seated hip abduction, isometric hip adduction, glut squeezes, abdominal isometrics, rowing with red theraband, tricep extension with red theraband, bicep curls with red theraband, horizontal abduction with red theraband, PNF D1 and D2 flexion and extension diagonals, shoulder flexion with red theraband, shoulder abduction with red theraband, seated heel raises, and seated toe raises. Patient tolerated treatment well. Patient declined further ambulation due to fatigue and decreased balance. Patient was left seated in chair with call light within reach.) Physical Therapy Problem List: Detail (1) LE weakness 2) Loss of LE ROM 3) Assistance with transfers and bed mobility 4) Limited ambulation distance and transfers 5) Impaired Balance) Physical Therapy Goals: 1) The patient will ambulate independently /supervision with wheeled walker distances of 150 feet plus. 2) The patient will be independent with alltransfers. 3) The patient will safely ambulate 2 stairs with CG of 1. 4) Increase LE strength by 1/3 to 1 full muscle grade. 5) Formally assess the patient's balance if tolerated. Prognosis: Good Physical Therapy Plan: PT M-F 1 to 2 times a day for LE strengthening, ROM and balance exercises, transfer training, bed mobility and gait training.
[2016-07-27] MEDS: IBUPROFEN 200 MG TABLET PO PRN (21:06)
--- NOTE | 2016-07-28 09:53 | Occupational Therapy Tx Note ---
Occupational Therapy Tx Note - Treatment Note Tolerated: Good Total Time Spent With Patient: 30 (ADL) Occupational Therapy Treatment Note: Detail (S: Pt up at EOB. O: Sit to stand and amb to toilet Indly with 2 wheeled walker. Doffed briefs and toileted Indly. Sit to stand with mod difficulty, Indly with use of grab bar on wall. Pulled up briefs Indly. Amb to EOB with walker. Donned pants with makeup artistry instructor and shirt Indly. Attempted slippers, pt unable with makeup artistry instructor. She reports she normally wears ballet type slippers but does wear socks at times. Reviewed use of sock aid, pt interested in using adaptive equipment. Sit to supine Indly. A: Ind with bed mobility, Ind with sit to stand with moderate difficulty) Occupational Therapy Problem List: Detail (1. decreased ind w/ ADLs 2. weakness BUE 3. decreased ind w/ bed mob 4. decreased endurance) Occupational Therapy Goals: 1. Pt to be ind w/ toileting. 2. Pt to be ind w/ LB drsg with AD if needed. 3. Pt to be ind to walk household distances using 2WW. 4. Pt to be ind w/ bed mobility. 5. Pt to be grossly 4/5 MMT BUE within available ROM Prognosis: Good Occupational Therapy Plan: Patient to be seen by OT 2-4x a week M-F
[2016-07-28] MEDS: IBUPROFEN 200 MG TABLET PO PRN (10:11)
[2016-07-28] MEDS: ASPIRIN 81 MG TABEC PO SCH (10:11)
[2016-07-28] MEDS: DOCUSATE SODIUM 100 MG CAPSULE PO SCH (10:11)
--- NOTE | 2016-07-28 18:31 | Physical Therapy Tx Note ---
Physical Therapy Tx Note - Treatment Note Tolerated: Good Total Time Spent With Patient: 30 Physical Therapy Tx Note: Detail (Patient states tired today. Patient transferred supine to sit independently. Patient transferred sit to and from stand CGA x1. Patient ambulated 27 feet with wheeled walker SBA x1. Patient transferred sit to and from stand CGA x1. Patient ascended and descended 3 steps CGA x1. Patient transferred sit to supine min assist x1. Patient performed the following exercises x10 reps: seated left hip flexion, seated hip abduction, LAQ, hamstring curls with red theraband, seated heel raises, seated toe raises, and adductor squeeze. Patient transferred supine to sit mod assist x1. Patient transferred sit to and from stand min assist x1. Patient tolerated treatment well. Patient reports tired and feels off balance today. Patient was left seated in chair with call light within reach.) Physical Therapy Problem List: Detail (1) LE weakness 2) Loss of LE ROM 3) Assistance with transfers and bed mobility 4) Limited ambulation distance and transfers 5) Impaired Balance) Physical Therapy Goals: 1) The patient will ambulate independently /supervision with wheeled walker distances of 150 feet plus. 2) The patient will be independent with alltransfers. 3) The patient will safely ambulate 2 stairs with CG of 1. 4) Increase LE strength by 1/3 to 1 full muscle grade. 5) Formally assess the patient's balance if tolerated. Prognosis: Good Physical Therapy Plan: PT M-F 1 to 2 times a day for LE strengthening, ROM and balance exercises, transfer training, bed mobility and gait training.
[2016-07-29] MEDS: DOCUSATE SODIUM 100 MG CAPSULE PO SCH (09:48)
[2016-07-29] MEDS: IBUPROFEN 200 MG TABLET PO PRN (09:48)
[2016-07-29] MEDS: ASPIRIN 81 MG TABEC PO SCH (09:48)
[2016-07-30] MEDS: IBUPROFEN 200 MG TABLET PO PRN (12:13)
[2016-07-30] MEDS: ASPIRIN 81 MG TABEC PO SCH (12:13)
[2016-07-30] MEDS: DOCUSATE SODIUM 100 MG CAPSULE PO SCH (12:13)
[2016-07-30] MEDS: IBUPROFEN 600 MG TABLET PO PRN (19:14)
--- NOTE | 2016-07-31 07:37 | RADIOLOGY REPORT ---
EXAM: LEFT WRIST, FOUR VIEWS HISTORY: ACUTE LEFT WRIST PAIN, POOR HISTORIAN. TECHNIQUE: Four views of the left wrist were obtained. Comparison: None. Encounter: Initial. FINDINGS: Osteopenia. No acute fracture or dislocation. Severe osteoarthritic change of the left first carpal metacarpal joint and left STT joint. IMPRESSION: 1. NO ACUTE OSSEOUS ABNORMALITY OF THE LEFT WRIST. 2. SEVERE OSTEOARTHRITIC CHANGE OF THE LEFT STT JOINT AND LEFT FIRST CARPAL METACARPAL JOINT. JOB NUMBER: [id number] [facility]
--- NOTE | 2016-07-31 07:42 | RADIOLOGY REPORT ---
EXAM: AP PELVIS HISTORY: ACUTE BILATERAL HIP PAIN. TECHNIQUE: AP view of the pelvis was obtained. Comparison: Hip radiographs 07/10/16. FINDINGS: Three cannulated screws overlie the right femoral head and neck. There appears to be bony ankylosis of the right femoroacetabular joint. Mild to moderate osteoarthritic change of the left femoroacetabular joint with joint space narrowing and small osteophytes. There is cortical contour deformity of the parasymphyseal left superior pubic ramus and left inferior pubic ramus suspicious for acute fractures consistent with fractures of indeterminate age although these were not. IMPRESSION: 1. POSSIBLE ACUTE NONDISPLACED FRACTURES OF THE LEFT SUPERIOR AND INFERIOR PUBIC RAMI. 2. OSTEOPENIA. 3. SEVERE OSTEOARTHRITIC CHANGE OF THE RIGHT FEMOROACETABULAR JOINT WITH BONY ANKYLOSIS. JOB NUMBER: [id number] AND [id number] [facility]
[2016-07-31] MEDS: DOCUSATE SODIUM 100 MG CAPSULE PO SCH (09:07)
[2016-07-31] MEDS: ASPIRIN 81 MG TABEC PO SCH (09:07)
[2016-07-31] MEDS: IBUPROFEN 600 MG TABLET PO PRN ×2 (09:08→17:37)
--- NOTE | 2016-07-31 12:03 | Occupational Therapy Tx Note ---
Occupational Therapy Tx Note - Treatment Note Occupational Therapy Treatment Note: Detail (Attempted OT session this morning, pt refusing any activity. She reports severe pelvic pain with movement.) Occupational Therapy Problem List: Detail (1. decreased ind w/ ADLs 2. weakness BUE 3. decreased ind w/ bed mob 4. decreased endurance) Occupational Therapy Goals: 1. Pt to be ind w/ toileting. 2. Pt to be ind w/ LB drsg with AD if needed. 3. Pt to be ind to walk household distances using 2WW. 4. Pt to be ind w/ bed mobility. 5. Pt to be grossly 4/5 MMT BUE within available ROM Occupational Therapy Plan: Patient to be seen by OT 2-4x a week M-F
--- NOTE | 2016-07-31 12:21 | Physician Progress Note ---
Subjective - Date Date of Progress Note: 07/31/16 - Admitting Diagnosis Diagnosis: deconditioning due to weakness and pain - Subjective Events since last encounter: patient experienced a fall on 07/30/16. She was ambulating from bed to chair. She did have a bed alarm, however she unplugged this from the wall. She has a small cut above her left wrist. She denied pain following the fall, however as the day went on, she became more painful to ambulate. a pelvic x ray was ordered which demonstrates a possible acute nondisplaced fx of the left superior and inferior pubic rami. Patient's ibuprofen was increased to 600 mg q 6 hours as needed. she's been willing to take her pain medications since this fall. A ortho referral has been placed. I spoke with the orthopedist, Dr. Newby, who recommends pain control and ambulation with a walker or wheel chair as tolerated by patient. Nursing Care Plan Problem List Activity Intolerance (Swing Bed) Start: 07/13/16 15: 12 Freq: Status: Active Created 07/13/16 15:12 SS (Rec: 07/13/16 15:12 SS [id number]) Knowledge Deficit (Swing Bed) Start: 07/13/16 15: 12 Freq: Status: Complete Created 07/13/16 15:12 SS (Rec: 07/13/16 15:12 SS [id number]) Edit Status 07/24/16 16:39 SAF (Rec: 07/24/16 16:39 SAF [id number]) Active=>Complete Pain (Swing Bed) Start: 07/13/16 15: 12 Freq: Status: Active Created 07/13/16 15:12 SS (Rec: 07/13/16 15:12 SS [id number]) Risk For Falls (Swing Bed) Start: 07/18/16 04: 16 Freq: Status: Active Created 07/18/16 04:16 MMN (Rec: 07/18/16 04:16 MMN [id number]) Edit Status 07/20/16 15:18 KMC (Rec: 07/20/16 15:18 KMC [id number]) Active=>Complete Edit Status 07/31/16 06:12 LPR (Rec: 07/31/16 06:12 LPR [id number]) Complete=>Active General - Cognitive Patterns Speech: Normal Thought Process: Intact Thought Content: Normal - Communication Select best description of speech pattern: Clear Speech Ability to express ideas and wants: Usually Understood Understanding verbal content: Usually Understands - Mood and Behavior Patterns Appearance: Well Groomed Mood: Normal Attitude: Cooperative Motor Activity: Calm Affect: Appropriate Hallucinations: Denies - Physical Functioning Activity Level: Up with assist x2 Turning: With partial assist ROM Ability: Moves all extremities Assistive Devices: 2 Wheel Walker Activity Level Comment: Walker at bedside. Ambulation Ability: Needs Assist Bed Mobility: Needs Assist Transfer Ability: Needs Assist Bathing Ability: Needs Assist Personal Hygiene: Independent Dressing Ability: Needs Assist Eating (Feeding) Ability: Independent Toileting Ability: Needs Assist Administer Own Medication: Dependent - Continence Bowel Pattern: Normal for Patient Bladder Pattern: Normal Meds/Allergies - Allergies Allergies Allergy/AdvReac Type Severity Reaction Status Date / Time Unable to Assess Allergy Unverified 07/10/16 19:07 - Active Medications Current Medications Acetaminophen (Tylenol 500mg Tab) 1,000 mg PO Q6H PRN PRN Reason: PAIN/TEMP Last Admin: 07/26/16 10:22 Dose: 1,000 mg Aspirin (Ecotrin (Ec)) 81 mg PO DAILY [facility] Last Admin: 07/31/16 09:07 Dose: 81 mg Docusate Sodium (Colace) 100 mg PO DAILY [facility] Last Admin: 07/31/16 09:07 Dose: 100 mg Ibuprofen (Motrin 600mg) 600 mg PO Q6H PRN PRN Reason: Pain - General Last Admin: 07/31/16 09:08 Dose: 600 mg Objective - Vital Signs Vital Signs: Vital Signs - Last 24 Hrs Temp Pulse Resp BP Pulse Ox 07/31/16 10:00 98.6 F 97 H 16 126/75 98 H&P Results - Labs Result Diagrams: 07/18/16 05:50 07/18/16 05:50 Discharge Potential - Discharge Needs Community Services Used Prior to Admission: None Patient Discharge Plan Description: Return Home Community Services Needed at Discharge: [facility] Discharge Needs Comment: [facility] referral initiated. Plan - Swing Bed Certification Initial Certification Due: 07/30/16 14 Day Re-Cert Due: 08/13/16 44 Day Re-Cert Due: 09/12/16 74 Day Re-Cert Due: 10/12/16 - Detailed Diagnosis and Plan (1) Pelvic fracture Current Visit: Yes Status: Acute Base Code: S32.9XXA - FRACTURE OF UNSP PARTS OF LUMBOSACRAL SPINE AND PELVIS, INIT Comment: 07/31/16: patient experienced a fall 07/30/16. I spoke with Dr. Newby who recommends adequate pain control. He will evaluate patient . Will continue wheelchair/ walker moblity. PT/OT as tolerated. Consider Ultram vs. tylenol 3's for pain depending on how patient responds to increase nsaid therapy. (2) Generalized weakness Current Visit: No Status: Acute Base Code: R53.1 - WEAKNESS Comment: 07/31/16: Patient continues to participate in PT/OT Mon-Sun. - Goals will be to improve strength, balance, gate, and general mobility - Hillary is working with insurance re how many days [facility] services with be allowed, especially noting recent pelvic fx - Nutritional consult done during in-pt stay. Patient continues to drink nutritional shakes frequently. (3) Atrial fibrillation Current Visit: No Status: Acute Qualifiers: Atrial fibrillation type: unspecified Qualified Code(s): I48.91 - Unspecified atrial fibrillation Base Code: I48.91 - UNSPECIFIED ATRIAL FIBRILLATION Comment: 07/31/16: - Cardiology Dr. Sanders evaluated patient on 07/11. Per cardiology recommendation will continue daily ASA - echocardiogram reviewed and normal EF%. - patient continues to deny chest pain, SOB or palpitations (4) Chronic right hip pain Current Visit: No Status: Acute Base Code: M25.551 - PAIN IN RIGHT HIP; G89.29 - OTHER CHRONIC PAIN Comment: 07/31/16 - Patient denies any pain at this time. She will continue to work w/ PT/OT. - Dr. Newby recommended nsaids for right hip pain. no other recommendations at this time - Tylenol 1000mg q6h PRN ordered as well for pain, however patient does not like to take medications and rarely takes the Tylenol. - Patient has been enouraged to take a dose of Tylenol before PT/OT so that participation is not as painful (5) Full code status Current Visit: No Status: Acute Base Code: Z78.9 - OTHER SPECIFIED HEALTH STATUS Comment: 07/31/16: Patient is full code
[2016-07-31] MEDS: ACETAMINOPHEN 500 MG TABLET PO PRN (13:22)
[2016-07-31] MEDS: PANTOPRAZOLE SODIUM 40 MG TABLET PO SCH (13:23)
--- NOTE | 2016-07-31 14:00 | Physical Therapy Tx Note ---
Physical Therapy Tx Note - Treatment Note Tolerated: Poor Total Time Spent With Patient: 15 Physical Therapy Tx Note: Detail (The patient was up in chair when PT arrived and refused to transfer back to bed saying she was comfortable in the chair. The patient had vague complaints of bilateral hip region pain. The patient did agree to complete UE strengthening exercises and completed the following all x 10 reps: bicep curls, tricep curls, diagonals PNF patterns,) Physical Therapy Problem List: Detail (1) LE weakness 2) Loss of LE ROM 3) Assistance with transfers and bed mobility 4) Limited ambulation distance and transfers 5) Impaired Balance) Physical Therapy Goals: 1) The patient will ambulate independently /supervision with wheeled walker distances of 150 feet plus. 2) The patient will be independent with alltransfers. 3) The patient will safely ambulate 2 stairs with CG of 1. 4) Increase LE strength by 1/3 to 1 full muscle grade. 5) Formally assess the patient's balance if tolerated. Physical Therapy Plan: PT M-F 1 to 2 times a day for LE strengthening, ROM and balance exercises, transfer training, bed mobility and gait training.
[2016-08-01] MEDS: IBUPROFEN 600 MG TABLET PO PRN (06:19)
[2016-08-01] MEDS: PANTOPRAZOLE SODIUM 40 MG TABLET PO SCH (06:19)
--- NOTE | 2016-08-01 08:33 | Occupational Therapy Tx Note ---
Occupational Therapy Tx Note - Treatment Note Tolerated: Good Total Time Spent With Patient: 30 (ADL) Occupational Therapy Treatment Note: Detail (S: Pt in bed, apprehensive about moving due to increased pain. O: Supine to sit with min assist. Sit to stand and pivot transferred to commode with walker and min assist. Toileted Indly, able to stand from commode to walker and pull up pants with CG assist. Transferred to wheelchair with walker and CG assist. Pt completed doffing of sock type slippers with hotel security officer and verbal cues, after demonstration pt was able to don slipper with sock aid with verbal cues. Reviewed use of adaptive equipment, pt verbalizes learning but will require continued teaching. A: Mod pain in pelvis and upper left leg with mobility, pt continues to improve Ind with LE dressing using adaptive equipment.) Occupational Therapy Problem List: Detail (1. decreased ind w/ ADLs 2. weakness BUE 3. decreased ind w/ bed mob 4. decreased endurance) Occupational Therapy Goals: 1. Pt to be ind w/ toileting. 2. Pt to be ind w/ LB drsg with AD if needed. 3. Pt to be ind to walk household distances using 2WW. 4. Pt to be ind w/ bed mobility. 5. Pt to be grossly 4/5 MMT BUE within available ROM Prognosis: Good Occupational Therapy Plan: Patient to be seen by OT 2-4x a week M-F
[2016-08-01] MEDS: ASPIRIN 81 MG TABEC PO SCH (09:19)
[2016-08-01] MEDS: DOCUSATE SODIUM 100 MG CAPSULE PO SCH (09:19)
--- NOTE | 2016-08-01 17:11 | Physical Therapy Tx Note ---
Physical Therapy Tx Note - Treatment Note Tolerated: Fair Total Time Spent With Patient: 20 Physical Therapy Tx Note: Detail (The patient was in bed when PT arrived. The patient acheived supine to sit with moderate PA of 1, sit to stand x2 with moderate PA . The patient transferred from bed to wheelchair with use of wheeled walker with Cg of 1 for safety. The patient refused further activity due to pain complaints with movement. The patient was left in chair with alarm and call light in place. R LE was propped up on pillows.) Physical Therapy Problem List: Detail (1) LE weakness 2) Loss of LE ROM 3) Assistance with transfers and bed mobility 4) Limited ambulation distance and transfers 5) Impaired Balance) Physical Therapy Goals: 1) The patient will ambulate independently /supervision with wheeled walker distances of 150 feet plus. 2) The patient will be independent with alltransfers. 3) The patient will safely ambulate 2 stairs with CG of 1. 4) Increase LE strength by 1/3 to 1 full muscle grade. 5) Formally assess the patient's balance if tolerated. Physical Therapy Plan: PT M-F 1 to 2 times a day for LE strengthening, ROM and balance exercises, transfer training, bed mobility and gait training.
[2016-08-01] MEDS: ACETAMINOPHEN 500 MG TABLET PO PRN (17:28)
[2016-08-02] MEDS: PANTOPRAZOLE SODIUM 40 MG TABLET PO SCH (06:04)
[2016-08-02] MEDS: ACETAMINOPHEN 500 MG TABLET PO PRN (06:04)
--- NOTE | 2016-08-02 08:42 | Occupational Therapy Tx Note ---
Occupational Therapy Tx Note - Treatment Note Tolerated: Good Total Time Spent With Patient: 30 (ADL) Occupational Therapy Treatment Note: Detail (S: Pt awake and reports less pain this morning. O: Supine to sit with mod assist x 1. Sit to stand with walker and min assist, took several steps to commode with walker and CG assist. Toileted Indly. Sit to stand from commode with min assist and amb several steps to EOB with CG assist. Donned PJ bottoms with supervisor chassis assembly Indly, with CG assist to stand and bone puller hips, donned sock type slippers with sock aid and min verbal cues. Sit to stand and amb to chair with walker and CG assist. A: Min to mod assist for bed mobility and sit to stand, verbal cues for LE dressing using adaptive equipment) Occupational Therapy Problem List: Detail (1. decreased ind w/ ADLs 2. weakness BUE 3. decreased ind w/ bed mob 4. decreased endurance) Occupational Therapy Goals: 1. Pt to be ind w/ toileting. 2. Pt to be ind w/ LB drsg with AD if needed. 3. Pt to be ind to walk household distances using 2WW. 4. Pt to be ind w/ bed mobility. 5. Pt to be grossly 4/5 MMT BUE within available ROM Prognosis: Good Occupational Therapy Plan: Patient to be seen by OT 2-4x a week M-F
[2016-08-02] MEDS: DOCUSATE SODIUM 100 MG CAPSULE PO SCH (09:06)
[2016-08-02] MEDS: ASPIRIN 81 MG TABEC PO SCH (09:06)
[2016-08-02] MEDS: IBUPROFEN 600 MG TABLET PO PRN ×2 (09:06→20:28)
--- NOTE | 2016-08-02 15:54 | Physical Therapy Tx Note ---
Physical Therapy Tx Note - Treatment Note Tolerated: Good Total Time Spent With Patient: 25 Physical Therapy Tx Note: Detail (The patient was up in chair when PT arrived. The patient completed the following UE strengthening exercises with red T band: D1 and D2 PNF patterns bilaterally, bicep curls, tricep curls, rowing all x 10 reps. LE exercises adductor squeezes, hip abduction with red band, LAQ, ham curls, ankle pumps all x 10 reps and chair push-ups x 5 reps, sit to stand x 1 with minimal PA. Patient was too fearful to walk. Will include wheelchair mobility in the patient's subsequent sessions. Emphasis will also be on sit to stand.) Physical Therapy Problem List: Detail (1) LE weakness 2) Loss of LE ROM 3) Assistance with transfers and bed mobility 4) Limited ambulation distance and transfers 5) Impaired Balance) Physical Therapy Goals: 1) The patient will ambulate independently /supervision with wheeled walker distances of 150 feet plus. 2) The patient will be independent with alltransfers. 3) The patient will safely ambulate 2 stairs with CG of 1. 4) Increase LE strength by 1/3 to 1 full muscle grade. 5) Formally assess the patient's balance if tolerated. Physical Therapy Plan: PT M-F 1 to 2 times a day for LE strengthening, ROM and balance exercises, transfer training, bed mobility and gait training.
[2016-08-03] MEDS: IBUPROFEN 600 MG TABLET PO PRN ×2 (08:07→21:16)
[2016-08-03] MEDS: PANTOPRAZOLE SODIUM 40 MG TABLET PO SCH (08:07)
--- NOTE | 2016-08-03 10:25 | Physical Therapy Tx Note ---
Physical Therapy Tx Note - Treatment Note Tolerated: Good Total Time Spent With Patient: 25 Physical Therapy Tx Note: Detail (Patient was supine in bed upon ORAL SURGERY ASSISTANT arrival. Patient states LEs tired today, didn't sleep well last night. Patient performed the following exercises x10 reps each with red therband: bicep curls, tricep extension, shoulder external rotation, shoulder internal rotation, shoulder flexion, shoulder abduction, PNF D1 and D2 flexion and extension diagonals, shoulder horizontal abduction, shoulder horizontal adduction, rowing , shoulder extension, ankle pumps, glut squeezes, and abdominal isometrics. Patient declined LE exercises. Patient tolerated treatment well. Patient reports difficulty with glut squeezes, and abdominal isometrics. Patient was left supine in bed with call light within reach.) Physical Therapy Problem List: Detail (1) LE weakness 2) Loss of LE ROM 3) Assistance with transfers and bed mobility 4) Limited ambulation distance and transfers 5) Impaired Balance) Physical Therapy Goals: 1) The patient will ambulate independently /supervision with wheeled walker distances of 150 feet plus. 2) The patient will be independent with alltransfers. 3) The patient will safely ambulate 2 stairs with CG of 1. 4) Increase LE strength by 1/3 to 1 full muscle grade. 5) Formally assess the patient's balance if tolerated. Prognosis: Good Physical Therapy Plan: PT M-F 1 to 2 times a day for LE strengthening, ROM and balance exercises, transfer training, bed mobility and gait training.
[2016-08-03] MEDS: ASPIRIN 81 MG TABEC PO SCH (10:32)
[2016-08-03] MEDS: DOCUSATE SODIUM 100 MG CAPSULE PO SCH (10:32)
--- NOTE | 2016-08-03 15:48 | Physical Therapy Tx Note ---
Physical Therapy Tx Note - Treatment Note Tolerated: Fair (Patient reports that she "is in the most pain her hip has been in" since the pelvic fracture that occured recently and reported she didnt want to get up and walk or move her legs.) Total Time Spent With Patient: 15 Physical Therapy Tx Note: Detail (The patient was awake in bed upon arrival for PT. Patient reported she did not want to get up from bed due to pain in hips, but agreed to perform some bed exercises. The patient performed the following supine exercises: quad sets X10 bilaterally, glut sets X10 bilaterally, ankle pumps X10 bilaterally, and SAQ X10 bilaterally. The patient reported she was getting sore in the hips after the bed exercises. The patient was left in bed with nurse call light next to her.) Physical Therapy Problem List: Detail (1) LE weakness 2) Loss of LE ROM 3) Assistance with transfers and bed mobility 4) Limited ambulation distance and transfers 5) Impaired Balance) Physical Therapy Goals: 1) The patient will ambulate independently /supervision with wheeled walker distances of 150 feet plus. 2) The patient will be independent with alltransfers. 3) The patient will safely ambulate 2 stairs with CG of 1. 4) Increase LE strength by 1/3 to 1 full muscle grade. 5) Formally assess the patient's balance if tolerated. Physical Therapy Plan: PT M-F 1 to 2 times a day for LE strengthening, ROM and balance exercises, transfer training, bed mobility and gait training.
[2016-08-04] MEDS: PANTOPRAZOLE SODIUM 40 MG TABLET PO SCH (06:16)
[2016-08-04] MEDS: IBUPROFEN 600 MG TABLET PO PRN (09:06)
[2016-08-04] MEDS: ASPIRIN 81 MG TABEC PO SCH (09:07)
[2016-08-04] MEDS: DOCUSATE SODIUM 100 MG CAPSULE PO SCH (09:07)
--- NOTE | 2016-08-04 10:12 | Physical Therapy Tx Note ---
Physical Therapy Tx Note - Treatment Note Total Time Spent With Patient: 20 Physical Therapy Tx Note: Detail (The patient was awake in bedside chair upon arrival for PT. Patient reports she is not in as much pain as she was in yesterday, but still does not wish to stand or walk due to pain in both hips. The patient performed the following seated exercises with legs supported by leg rest: SAQ X10 bilaterally 3" hold, quad sets X10 bilaterally 3" hold, glut sets X10 3" hold, and ankle pumps X20 bilaterally. Patient was again asked if she would like to attempt to stand from chair, but she again refused due to anticipated pain in hips. The patient was left in bedside chair with nurse call light next to her.) Physical Therapy Problem List: Detail (1) LE weakness 2) Loss of LE ROM 3) Assistance with transfers and bed mobility 4) Limited ambulation distance and transfers 5) Impaired Balance) Physical Therapy Goals: 1) The patient will ambulate independently /supervision with wheeled walker distances of 150 feet plus. 2) The patient will be independent with alltransfers. 3) The patient will safely ambulate 2 stairs with CG of 1. 4) Increase LE strength by 1/3 to 1 full muscle grade. 5) Formally assess the patient's balance if tolerated. Physical Therapy Plan: PT M-F 1 to 2 times a day for LE strengthening, ROM and balance exercises, transfer training, bed mobility and gait training.
--- NOTE | 2016-08-04 14:19 | Occupational Therapy Tx Note ---
Occupational Therapy Tx Note - Treatment Note Tolerated: Good Total Time Spent With Patient: 35 (ther ex) Occupational Therapy Treatment Note: Detail (S: Pt in chair, resting after lunch. O: Sit to stand with walker and mod assist. Took several steps to wheelchair with walker and min assist. Transported to rehab gym. Pt completed sophia UE strengthening activity using graded clothespins and reaching overhead. Pt completed reaching/leaning activity to increase soft tissue flexibility at hips to increased Ind and safety with sit to stand. Pt completed sophia hand theraputty exercises and was provided with red putty and written HEP. Pt demos learning. Transported back to room via wheelchair. Sit to stand with min assist and took several steps to EOB with walker and CG assist. Sit to supine with mod assist due to hip pain. A: Slight increase in hip flexibility after reaching activity, Ind with theraputty HEP to increase UE strength) Occupational Therapy Problem List: Detail (1. decreased ind w/ ADLs 2. weakness BUE 3. decreased ind w/ bed mob 4. decreased endurance) Occupational Therapy Goals: 1. Pt to be ind w/ toileting. 2. Pt to be ind w/ LB drsg with AD if needed. 3. Pt to be ind to walk household distances using 2WW. 4. Pt to be ind w/ bed mobility. 5. Pt to be grossly 4/5 MMT BUE within available ROM Prognosis: Good Occupational Therapy Plan: Patient to be seen by OT 2-4x a week M-F
[2016-08-05] MEDS: PANTOPRAZOLE SODIUM 40 MG TABLET PO SCH (06:55)
[2016-08-05] MEDS: DOCUSATE SODIUM 100 MG CAPSULE PO SCH (09:06)
[2016-08-05] MEDS: ASPIRIN 81 MG TABEC PO SCH (09:06)
[2016-08-05] MEDS: IBUPROFEN 600 MG TABLET PO PRN ×2 (09:07→21:34)
[2016-08-06] MEDS: PANTOPRAZOLE SODIUM 40 MG TABLET PO SCH (08:24)
[2016-08-06] MEDS: DOCUSATE SODIUM 100 MG CAPSULE PO SCH (09:05)
[2016-08-06] MEDS: IBUPROFEN 600 MG TABLET PO PRN ×2 (09:05→20:05)
[2016-08-06] MEDS: ASPIRIN 81 MG TABEC PO SCH (09:05)
[2016-08-07] MEDS: PANTOPRAZOLE SODIUM 40 MG TABLET PO SCH (06:39)
[2016-08-07] MEDS: IBUPROFEN 600 MG TABLET PO PRN (09:28)
[2016-08-07] MEDS: ASPIRIN 81 MG TABEC PO SCH (09:29)
[2016-08-07] MEDS: DOCUSATE SODIUM 100 MG CAPSULE PO SCH (09:29)
--- NOTE | 2016-08-07 09:39 | Physical Therapy Tx Note ---
Physical Therapy Tx Note - Treatment Note Tolerated: Fair (The patient reported pain in both hips this morning and reported difficulty moving L LE when ambulating.) Total Time Spent With Patient: 25 Physical Therapy Tx Note: Detail (The patient was awake in bed upon arrival for PT. The patient was max assist+1 moving the LEs off the bed and mod assist+1 transferring from supine to seated. The patient was max assist+1, mod of 1 from sit to stand transfer from bed. The patient ambulated from bed to wheelchair ~2 feet, and was mod assist+1 from stand to sit transfer. The patient used the wheelchair to go into the bathroom to use the restroom with min assist +1 for steering. The patient was mod assist+1 with toileting. The patient was max assist+1 with sit to stand from toilet and ambulated on level surface with front wheeled walker and CGA+1 from toilet to bedside chair ~12 feet. The patient performed the following seated exercises bilaterally: LAQ X10, ankle pumps X20, hip adduction with pillow 3" holds, hip abduction X10 with red theraband, SAQ X10 with LE supported by leg rest, marching X10, chair push ups X10. The patient was left in bed side chair with nurse call light next to her.) Physical Therapy Problem List: Detail (1) LE weakness 2) Loss of LE ROM 3) Assistance with transfers and bed mobility 4) Limited ambulation distance and transfers 5) Impaired Balance) Physical Therapy Goals: 1) The patient will ambulate independently /supervision with wheeled walker distances of 150 feet plus. 2) The patient will be independent with alltransfers. 3) The patient will safely ambulate 2 stairs with CG of 1. 4) Increase LE strength by 1/3 to 1 full muscle grade. 5) Formally assess the patient's balance if tolerated. Physical Therapy Plan: PT M-F 1 to 2 times a day for LE strengthening, ROM and balance exercises, transfer training, bed mobility and gait training.
--- NOTE | 2016-08-07 14:25 | Occupational Therapy Tx Note ---
Occupational Therapy Tx Note - Treatment Note Tolerated: Good Total Time Spent With Patient: 45 (ther ex) Occupational Therapy Treatment Note: Detail (S: Pt in bed resting, ready for therapy. O: Supine to sit Indly with use of hospital bed rails and moderate difficulty. Sit to stand and amb to toilet with 2 wheeled walker and CG assist. Toileted Indly with raised commode chair. Amb back to chair with walker. Brought to rehab gym via wheelchair. Pt completed sophai UE strengthening with resisted, graded clothespins and reaching overhead, red theraband for shoulder and elbow strengthening, red theraputty, and reaching forward for hip ROM. Transported back to room, pt educated on propelling wheelchair, she was able to demo but will require cont. teaching. A: Pt continues to increase UE strength and endurance needed for Ind transfers, ADLs) Occupational Therapy Problem List: Detail (1. decreased ind w/ ADLs 2. weakness BUE 3. decreased ind w/ bed mob 4. decreased endurance) Occupational Therapy Goals: 1. Pt to be ind w/ toileting. 2. Pt to be ind w/ LB drsg with AD if needed. 3. Pt to be ind to walk household distances using 2WW. 4. Pt to be ind w/ bed mobility. 5. Pt to be grossly 4/5 MMT BUE within available ROM Prognosis: Good Occupational Therapy Plan: Patient to be seen by OT 2-4x a week M-F
[2016-08-08] MEDS: IBUPROFEN 600 MG TABLET PO PRN ×2 (02:49→09:57)
[2016-08-08] MEDS: PANTOPRAZOLE SODIUM 40 MG TABLET PO SCH (07:12)
[2016-08-08] MEDS: ASPIRIN 81 MG TABEC PO SCH (09:56)
[2016-08-08] MEDS: DOCUSATE SODIUM 100 MG CAPSULE PO SCH (09:57)
--- NOTE | 2016-08-08 12:02 | Physical Therapy Tx Note ---
Physical Therapy Tx Note - Treatment Note Tolerated: Fair Total Time Spent With Patient: 20 Physical Therapy Tx Note: Detail (The patient was asleep when PT arrived. The patient achieved supine to sit independently with slowed movements and supervision for safety. The patient acheived sit to stand from raised bed with CG only for safety, due to adjustment of feet when standing. The patient ambulated with wheeled walker to chair 10 feet with CG for safety. The patient completed LE strengthening exercises including : LAQ, ankle pumps, hip adductor squeezes, hip abduction and hip marching all x 10 reps. The patient required maximal verbal cues to stay awake when completing exercises in chair. The patient was placed in a reclined position with call light in place. Nursing staff was notified. The patient exhibited increased independence with mobility today and less complaints of groin pain. The patient however was too tired to complete more then 20 minutes of activity.) Physical Therapy Problem List: Detail (1) LE weakness 2) Loss of LE ROM 3) Assistance with transfers and bed mobility 4) Limited ambulation distance and transfers 5) Impaired Balance) Physical Therapy Goals: 1) The patient will ambulate independently /supervision with wheeled walker distances of 150 feet plus. 2) The patient will be independent with alltransfers. 3) The patient will safely ambulate 2 stairs with CG of 1. 4) Increase LE strength by 1/3 to 1 full muscle grade. 5) Formally assess the patient's balance if tolerated. Physical Therapy Plan: PT M-F 1 to 2 times a day for LE strengthening, ROM and balance exercises, transfer training, bed mobility and gait training.
--- NOTE | 2016-08-08 15:20 | Physical Therapy Tx Note ---
Physical Therapy Tx Note - Treatment Note Tolerated: Good Total Time Spent With Patient: 30 Physical Therapy Tx Note: Detail (Pt was reclined in chair upon arrival and willing to complete ex's. Pt required assist to upright the chair. Pt was able to transfer to sit edge of chair to complete some ex's. Pt completed hip adduction with pillow, marches, LAQ, heel slides to increase knee flexion. ankle pumps, hip abduction seated all x 10 bilateral. Pt transferred sit to stand independently with slow movements and contact guard. Pt ambulated with wheeled walker to bathroom to use toilet and was able to complete self care independently. Pt sit to stand from elevated seat over toilet with min assist and required min assist to pull up pants. Pt transferred and stood at sink to wash hands with good balance and contact guard assist only. Pt returned to chair and was able to do chair mobility to self adjust to good positioning with verbal cueing. Pt was given table and nursing button with chair reclined.) Physical Therapy Problem List: Detail (1) LE weakness 2) Loss of LE ROM 3) Assistance with transfers and bed mobility 4) Limited ambulation distance and transfers 5) Impaired Balance) Physical Therapy Goals: 1) The patient will ambulate independently /supervision with wheeled walker distances of 150 feet plus. 2) The patient will be independent with alltransfers. 3) The patient will safely ambulate 2 stairs with CG of 1. 4) Increase LE strength by 1/3 to 1 full muscle grade. 5) Formally assess the patient's balance if tolerated. Prognosis: Good Physical Therapy Plan: PT M-F 1 to 2 times a day for LE strengthening, ROM and balance exercises, transfer training, bed mobility and gait training.
[2016-08-09] MEDS: PANTOPRAZOLE SODIUM 40 MG TABLET PO SCH (06:34)
[2016-08-09] MEDS: DOCUSATE SODIUM 100 MG CAPSULE PO SCH (09:14)
[2016-08-09] MEDS: IBUPROFEN 600 MG TABLET PO PRN (09:15)
[2016-08-09] MEDS: ASPIRIN 81 MG TABEC PO SCH (09:15)
--- NOTE | 2016-08-09 11:04 | Occupational Therapy Tx Note ---
Occupational Therapy Tx Note - Treatment Note Tolerated: Good Total Time Spent With Patient: 60 (ADL) Occupational Therapy Treatment Note: Detail (S: Pt resting in bed. O: Supine to sit Indly although with mod difficulty. Sit to stand with min assist to walker and amb to commode with SBA. Toileted Indly, doffed PJ bottoms and briefs with welder plastic Indly. Sit to stand with grab bar and commode Ind and amb to shower. Doffed slippers with welder plastic and shirt Indly. Pt completed total body showering Indly in sitting with the exception of back and feet. Pt was able to stand using grab bar and wash hayes area with SBA. Pt dried self Indly. Donned shirt, brief, pants and sock type slippers with adaptive equipment Indly. Amb to chair with walker Indly. Combed hair Indly. A: Pt is Ind with dressing using adaptive equipment, recommend long bath sponge for washing back/ feet, cont. with difficulty with sit to stand from low surfaces.) Occupational Therapy Problem List: Detail (1. decreased ind w/ ADLs 2. weakness BUE 3. decreased ind w/ bed mob 4. decreased endurance) Occupational Therapy Goals: 1. Pt to be ind w/ toileting. 2. Pt to be ind w/ LB drsg with AD if needed. 3. Pt to be ind to walk household distances using 2WW. 4. Pt to be ind w/ bed mobility. 5. Pt to be grossly 4/5 MMT BUE within available ROM Prognosis: Good Occupational Therapy Plan: Patient to be seen by OT 2-4x a week M-F
--- NOTE | 2016-08-09 11:48 | Physical Therapy Tx Note ---
Physical Therapy Tx Note - Treatment Note Tolerated: Poor (The patient reported she was very tired today and painful in hip when standing.) Total Time Spent With Patient: 25 Physical Therapy Tx Note: Detail (The patient was alseep in bedside chair with daughter in room upon arrival for PT. The patient was max assist+2 with sit to stand trnasfer after 2 attempts to rise. The patient performed a pivot transfer to wheelchair with CGA+2. The patient was taken upstairs via wheelchair to practice performing a 4" step, which the patient was unable to do due to pain and fatigue. The patient performed the following seated UE exercises bilaterally 10X per exercise: bicep curls, shoulder flexion, diagonal flexion, tricep extensions, horizontal abduction. The patient was then taken back to her room via wheelchair. The patient could not perform sit to stand or pivot transfer with assist so max trasnfer was performed to get patient back to bedside chair. The patient was left in bedside chair with daughter in room and nurse call light next to her.) Physical Therapy Problem List: Detail (1) LE weakness 2) Loss of LE ROM 3) Assistance with transfers and bed mobility 4) Limited ambulation distance and transfers 5) Impaired Balance) Physical Therapy Goals: 1) The patient will ambulate independently /supervision with wheeled walker distances of 150 feet plus. 2) The patient will be independent with alltransfers. 3) The patient will safely ambulate 2 stairs with CG of 1. 4) Increase LE strength by 1/3 to 1 full muscle grade. 5) Formally assess the patient's balance if tolerated. Physical Therapy Plan: PT M-F 1 to 2 times a day for LE strengthening, ROM and balance exercises, transfer training, bed mobility and gait training.
--- NOTE | 2016-08-09 12:47 | Physician Progress Note ---
Subjective - Date Date of Progress Note: 08/09/16 - Admitting Diagnosis Diagnosis: deconditioning due to weakness and pain - Subjective Nursing Care Plan Problem List Activity Intolerance (Swing Bed) Start: 07/13/16 15: 12 Freq: Status: Active Created 07/13/16 15:12 SS (Rec: 07/13/16 15:12 SS [id number]) Knowledge Deficit (Swing Bed) Start: 07/13/16 15: 12 Freq: Status: Complete Created 07/13/16 15:12 SS (Rec: 07/13/16 15:12 SS [id number]) Edit Status 07/24/16 16:39 SAF (Rec: 07/24/16 16:39 SAF [id number]) Active=>Complete Pain (Swing Bed) Start: 07/13/16 15: 12 Freq: Status: Active Created 07/13/16 15:12 SS (Rec: 07/13/16 15:12 SS [id number]) Risk For Falls (Swing Bed) Start: 07/18/16 04: 16 Freq: Status: Active Created 07/18/16 04:16 MMN (Rec: 07/18/16 04:16 MMN [id number]) Edit Status 07/20/16 15:18 KMC (Rec: 07/20/16 15:18 KMC [id number]) Active=>Complete Edit Status 07/31/16 06:12 LPR (Rec: 07/31/16 06:12 LPR [id number]) Complete=>Active Subjective: Patient doing well with no concerns. She is hoping to transition home soon. She has been up and working well with PT/OT M-F with some pain in the hip. Says the ibuprofen does seem to help. General - Cognitive Patterns Speech: Normal Thought Process: Intact Thought Content: Normal - Communication Select best description of speech pattern: Clear Speech Ability to express ideas and wants: Usually Understood Understanding verbal content: Usually Understands - Mood and Behavior Patterns Appearance: Well Groomed Mood: Normal Attitude: Cooperative Motor Activity: Calm Affect: Appropriate Hallucinations: Denies - Physical Functioning Activity Level: Up with assist x1 Turning: Self ad janelle ROM Ability: Moves all extremities Assistive Devices: 2 Wheel Walker Activity Level Comment: NEEDS STAND BY ASSIST WITH 1 ASSIST FOR ANY AMBULATION OR TRANSFER Ambulation Ability: Needs Assist Bed Mobility: Independent Transfer Ability: Needs Assist Bathing Ability: Needs Assist Personal Hygiene: Independent Dressing Ability: Needs Assist Eating (Feeding) Ability: Independent Toileting Ability: Needs Assist Administer Own Medication: Needs Assist - Continence Bowel Pattern: Normal for Patient Bladder Pattern: Normal Meds/Allergies - Allergies Allergies Allergy/AdvReac Type Severity Reaction Status Date / Time Unable to Assess Allergy Unverified 07/10/16 19:07 - Active Medications Current Medications Acetaminophen (Tylenol 500mg Tab) 1,000 mg PO Q6H PRN PRN Reason: PAIN/TEMP Last Admin: 08/02/16 06:04 Dose: 1,000 mg Aspirin (Ecotrin (Ec)) 81 mg PO DAILY [facility] Last Admin: 08/09/16 09:15 Dose: 81 mg Docusate Sodium (Colace) 100 mg PO DAILY [facility] Last Admin: 08/09/16 09:14 Dose: 100 mg Ibuprofen (Motrin 600mg) 600 mg PO Q6H PRN PRN Reason: Pain - General Last Admin: 08/09/16 09:15 Dose: 600 mg Pantoprazole Sodium (Protonix) 40 mg PO DAILYAC [facility] Last Admin: 08/09/16 06:34 Dose: 40 mg Objective - Vital Signs Vital Signs: Vital Signs - Last 24 Hrs Temp Pulse Resp BP BP Pulse Ox 08/09/16 10:00 98.0 F 98 H 18 108/65 108/98 97 - General General Appearance: Alert, Oriented x3, Cooperative, No acute distress Limitations: No limitations - Head Head exam detail: negative: Abrasion, Contusion - Eye Eye exam: Normal appearance, EOMI. negative: Conjunctival injection Pupils: Normal accommodation - ENT ENT exam: Normal exam, Mucous membranes moist, Normal external ear exam, Normal orophraynx. negative: Mucous membranes dry Ear exam: Normal external inspection, External canal tenderness Nasal Exam: Normal inspection. negative: Active bleeding, Discharge, Sinus tenderness Mouth exam: Normal external inspection, Tongue normal. negative: Drooling Teeth exam: Dental caries, Other (poor dentition ) - Neck Neck exam: Normal inspection, Full ROM. negative: Tenderness - Respiratory Respiratory exam: Normal lung sounds bilaterally. negative: Accessory muscle use, Chest wall tenderness, Respiratory distress, Wheezes - Cardiovascular Cardiovascular Exam: Regular rate, Normal heart sounds, Irregular rhythm (a-fib) Peripheral Pulses: 2+: Radial (L) - GI/Abdominal GI/Abdominal exam: Soft, Normal bowel sounds. negative: Distended, Guarding, Tenderness - Rectal Rectal exam: Deferred - exam: Deferred - Extremities Extremities exam: Normal inspection, Tenderness (right hip), Other (chronic skin changes on bilateral lower legs ). negative: Calf tenderness - Back Back exam: Reports: Normal inspection. Denies: Rash noted - Neurological Neurological exam: Abnormal gait (patient currently 1 person assist to stand from sitting position ), Alert, CN II-XII intact, Oriented X3 - Psychiatric Psychiatric exam: Normal affect, Normal mood - Skin Skin exam: Dry, Intact, Normal color, Warm. negative: Cyanosis, Diaphoretic H&P Results - Labs Result Diagrams: 07/18/16 05:50 07/18/16 05:50 Discharge Potential - Discharge Needs Community Services Used Prior to Admission: None Patient Discharge Plan Description: Return Home Community Services Needed at Discharge: [facility] Discharge Needs Comment: Discussed need for assistance within the home. Pt is agreeable to home health, visiting physician and care coming into the home. Plan - Swing Bed Certification Initial Certification Due: 07/13/16 14 Day Re-Cert Due: 07/27/16 44 Day Re-Cert Due: 08/26/16 74 Day Re-Cert Due: 09/25/16 - Detailed Diagnosis and Plan (1) Generalized weakness Current Visit: No Status: Acute Base Code: R53.1 - WEAKNESS Comment: 08/09/16: Patient continues to participate in PT/OT Mon-Fri. - Goals will be to improve strength, balance, gate, and general mobility - Hillary is working with insurance. As it stands patient is approved through 08/15. We will reevaluate at that time and determine need for reapplication to insurance. - Nutritional consult done during in-pt stay. Patient continues to drink nutritional shakes frequently. (2) Pelvic fracture Current Visit: Yes Status: Acute Qualifiers: Encounter type: subsequent encounter Base Code: S32.9XXA - FRACTURE OF UNSP PARTS OF LUMBOSACRAL SPINE AND PELVIS, INIT Comment: 08/09/16: patient experienced a fall 07/30/16 with possible superior and inferior left rami fractures. Case was discussed with Dr. Newby who recommended adequate pain control and PT/OT as tolerated. Patient seems to be doing well with adequate pain control. PT/OT state she has been actively participating with minimal pain -continue PT/OT -continue ibuprofen for pain control as needed (3) Atrial fibrillation Current Visit: No Status: Acute Qualifiers: Atrial fibrillation type: unspecified Qualified Code(s): I48.91 - Unspecified atrial fibrillation Base Code: I48.91 - UNSPECIFIED ATRIAL FIBRILLATION Comment: 08/09/16: - Cardiology Dr. Sanders evaluated patient on 07/11. Per cardiology recommendation will continue daily ASA - echocardiogram reviewed and normal EF%. 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 Dr. Newby evaluated patient. - Dr. Newby recommended nsaids for right hip pain. no other recommendations at this time. Patient is not a surgical candidate. - Tylenol 1000mg q6h PRN ordered as well for pain, however patient does not like to take medications and rarely takes the Tylenol. - Patient has been enouraged to take a dose of Tylenol before PT/OT so that participation is not as painful (5) DVT prophylaxis Current Visit: No Status: Acute Base Code: [id number] - Comment: 08/09/16: SCDs ordered to be worn while pt in bed. She is ambulating well now with Pt/OT coming in and working with her M-F. Additionally, Dr. Sanders recommended 81mg aspirin only for DVt prophylaxis with chornic afib due to patient's high fall risk (6) Full code status Current Visit: No Status: Acute Base Code: Z78.9 - OTHER SPECIFIED HEALTH STATUS Comment: 08/09/16: Patient is full code
[2016-08-10] MEDS: PANTOPRAZOLE SODIUM 40 MG TABLET PO SCH (07:01)
[2016-08-10] MEDS: IBUPROFEN 600 MG TABLET PO PRN ×2 (10:13→16:36)
[2016-08-10] MEDS: ASPIRIN 81 MG TABEC PO SCH (10:14)
[2016-08-10] MEDS: DOCUSATE SODIUM 100 MG CAPSULE PO SCH (10:14)
--- NOTE | 2016-08-10 11:39 | Physical Therapy Tx Note ---
Physical Therapy Tx Note - Treatment Note Tolerated: Good Total Time Spent With Patient: 25 Physical Therapy Tx Note: Detail (The patient was asleep in bed upon arrival for PT. The patient was max assist+1 with getting LEs into a seated position from supine and min assist+1 getting trunk into sitting position from supine. The patient was then mod assist+1 with sit to stand transfer from bed and ambulated to restroom with CGA+1 and was independent in all voiding activities. The patient was mod assist+1 with standing from toilet and then ambulated to wheelchair which was ~12 feet with front wheeled walker and CGA+1. The patient was then taken to upstairs gym via wheelchair. The patient ambulated 4 4" steps with CGA+1 , hand railing, and walker. The patient then performed the following seated exercises 10X bilat: marching, ankle pumps, hip abduction, hip adduction with pillow 5" holds, and LAQ. The patient was then taken back to her room via wheelchair and was min assist+1 with sit to stand transfer from wheelchair. The patient was left in bedside chair with nurse call light next to her and chair alarm on. Nursing notified of patient in bedside chair and chair alarm being on. ) Physical Therapy Problem List: Detail (1) LE weakness 2) Loss of LE ROM 3) Assistance with transfers and bed mobility 4) Limited ambulation distance and transfers 5) Impaired Balance) Physical Therapy Goals: 1) The patient will ambulate independently /supervision with wheeled walker distances of 150 feet plus. 2) The patient will be independent with alltransfers. 3) The patient will safely ambulate 2 stairs with CG of 1. 4) Increase LE strength by 1/3 to 1 full muscle grade. 5) Formally assess the patient's balance if tolerated. Physical Therapy Plan: PT M-F 1 to 2 times a day for LE strengthening, ROM and balance exercises, transfer training, bed mobility and gait training.
--- NOTE | 2016-08-10 15:43 | Physical Therapy Tx Note ---
Physical Therapy Tx Note - Treatment Note Tolerated: Good Total Time Spent With Patient: 30 Physical Therapy Tx Note: Detail (The patient was awake in the bedside chair with family in the room upon arrival. The patient was mod assist+1 with sit to and from stand transfer. The patient ambulated from bedside chair to bed with CGA+1 and use of a front wheeled walker. The patient required min assist+1 getting trunk to supine from sit and mod assist+1 with getting LEs to supine from sit. The patient then practiced getting to sit from supine using a strap tied to end of bed. The patient was CGA+2 with using strap to perform supine to sit transfer. The patient performed this strap assisted supine to sit transfer 2X. The patient was independent with getting to supine from sit when using the strap. The patient then ambulated ~48 feet with CGA+1 and front wheeled walker. The patient was left in bedside chair with chair alarm on, nurse call light next to her, and family in room.) Physical Therapy Problem List: Detail (1) LE weakness 2) Loss of LE ROM 3) Assistance with transfers and bed mobility 4) Limited ambulation distance and transfers 5) Impaired Balance) Physical Therapy Goals: 1) The patient will ambulate independently /supervision with wheeled walker distances of 150 feet plus. 2) The patient will be independent with alltransfers. 3) The patient will safely ambulate 2 stairs with CG of 1. 4) Increase LE strength by 1/3 to 1 full muscle grade. 5) Formally assess the patient's balance if tolerated. Physical Therapy Plan: PT M-F 1 to 2 times a day for LE strengthening, ROM and balance exercises, transfer training, bed mobility and gait training.
[2016-08-11] MEDS: IBUPROFEN 600 MG TABLET PO PRN ×2 (06:01→14:59)
[2016-08-11] MEDS: PANTOPRAZOLE SODIUM 40 MG TABLET PO SCH (06:02)
[2016-08-11] MEDS: DOCUSATE SODIUM 100 MG CAPSULE PO SCH (10:12)
[2016-08-11] MEDS: ASPIRIN 81 MG TABEC PO SCH (10:12)
--- NOTE | 2016-08-11 10:19 | Physical Therapy Tx Note ---
Physical Therapy Tx Note - Treatment Note Tolerated: Good Total Time Spent With Patient: 30 Physical Therapy Tx Note: Detail (The patient was awake in bedisde chair upon arrival for PT. The patient put her shirt on independently and had min assist+1 with with getting pants on in seated position. The patient was min assist+1 with sit to stand transfer and was independent in finishing pulling her pants up in standing. The patient ambulated ~5 feet to the wheelchair and was CGA+1 with stand to sit transfer. The patient was taken upstairs via wheelchair to perform stairs. The patient abulated 3 4" stairs up and down. The patient was CGA+1 with the ascent phase reporting some pain in both hips. The patient was CGA+1 with the descent phase. The patient pushed back into extension during the descent phase. The patient showed shortness of breath and reported fear of stairs after completing stair training. The patient then performed the following seated LE exercises 10X bilaterally: marching, hip abduction, hip adduction with pillow 5" holds, ankle pumps, and LAQ. The patient was then taken back to her room via wheelchair. The patient was min assist+1 with sit to stand transfer from wheelchair. The patient required verbal cues for hand placement with sit to stand transfer. The patient ambulated ~3 feet to bedisde chair and was CGA+1 with stand to sit transfer. The patient was left in bedside chair with nurse call light next to her.) Physical Therapy Problem List: Detail (1) LE weakness 2) Loss of LE ROM 3) Assistance with transfers and bed mobility 4) Limited ambulation distance and transfers 5) Impaired Balance) Physical Therapy Goals: 1) The patient will ambulate independently /supervision with wheeled walker distances of 150 feet plus. 2) The patient will be independent with alltransfers. 3) The patient will safely ambulate 2 stairs with CG of 1. 4) Increase LE strength by 1/3 to 1 full muscle grade. 5) Formally assess the patient's balance if tolerated. Physical Therapy Plan: PT M-F 1 to 2 times a day for LE strengthening, ROM and balance exercises, transfer training, bed mobility and gait training.
--- NOTE | 2016-08-11 15:49 | Physical Therapy Tx Note ---
Physical Therapy Tx Note - Treatment Note Tolerated: Fair Total Time Spent With Patient: 20 Physical Therapy Tx Note: Detail (The patient was in bathroom when PT arrived. The patient was able to acheive sit to stand from the toilet with use of bar independently and pull up pants, the patient requires supervision for safety. The patient ambulated from bathroom to bed 11 feet with wheeled walker with CG the patient winced in pain with weight bearing on RLE. The patient acheived supine to and from sit transfer x 2 with trapeze with maximal verbal cues, and minimal PA. The patient scooted up in bed with trapeze and LE's pushing with maximal verbal cues and moderate PA of 1. The patient then complained of pain and fatigue ( Patient had just received Motrin). PT treatment was shortened due to patient's complaints of pain and fatigue. Will continue working on bed mobility with use of trapeze to assess the patient's equipment needs at home to achieve bed mobility without assistance. At this point the patient requires verbal and physical assistance to use trapeze.) Physical Therapy Problem List: Detail (1) LE weakness 2) Loss of LE ROM 3) Assistance with transfers and bed mobility 4) Limited ambulation distance and transfers 5) Impaired Balance) Physical Therapy Goals: 1) The patient will ambulate independently /supervision with wheeled walker distances of 150 feet plus. 2) The patient will be independent with alltransfers. 3) The patient will safely ambulate 2 stairs with CG of 1. 4) Increase LE strength by 1/3 to 1 full muscle grade. 5) Formally assess the patient's balance if tolerated. Physical Therapy Plan: PT M-F 1 to 2 times a day for LE strengthening, ROM and balance exercises, transfer training, bed mobility and gait training.
[2016-08-12] MEDS: PANTOPRAZOLE SODIUM 40 MG TABLET PO SCH (06:10)
[2016-08-12] MEDS: ASPIRIN 81 MG TABEC PO SCH (09:18)
[2016-08-12] MEDS: DOCUSATE SODIUM 100 MG CAPSULE PO SCH (09:18)
[2016-08-13] MEDS: ACETAMINOPHEN 500 MG TABLET PO PRN (06:27)
[2016-08-13] MEDS: PANTOPRAZOLE SODIUM 40 MG TABLET PO SCH (06:27)
[2016-08-13] MEDS: DOCUSATE SODIUM 100 MG CAPSULE PO SCH (09:07)
[2016-08-13] MEDS: ASPIRIN 81 MG TABEC PO SCH (09:07)
[2016-08-14] MEDS: PANTOPRAZOLE SODIUM 40 MG TABLET PO SCH (05:59)
[2016-08-14] MEDS: ASPIRIN 81 MG TABEC PO SCH (09:31)
[2016-08-14] MEDS: DOCUSATE SODIUM 100 MG CAPSULE PO SCH (09:31)
--- NOTE | 2016-08-14 11:00 | Occupational Therapy Tx Note ---
Occupational Therapy Tx Note - Treatment Note Tolerated: Good Total Time Spent With Patient: 30 (ADL) Occupational Therapy Treatment Note: Detail (S: Pt in bed, ready to get up. O : Supine to sit Indly with HOB raised fully, she had min difficulty. Sit to stand and amb to commode Indly with 2 wheeled walker. Toileted Indly. Doffed gown and donned pants and shirt Indly using business operations manager. Amb to scale and she was able to step up onto scale with walker and CG assist x 2. Amb to chair and combed hair Indly. A: Less c/o pain with transfers and amb. Pt cont. to struggle with supine to sit as well as sit to stand although she is Ind most of the time with grab bar and raised seat.) Occupational Therapy Problem List: Detail (1. decreased ind w/ ADLs 2. weakness BUE 3. decreased ind w/ bed mob 4. decreased endurance) Occupational Therapy Goals: 1. Pt to be ind w/ toileting. 2. Pt to be ind w/ LB drsg with AD if needed. 3. Pt to be ind to walk household distances using 2WW. 4. Pt to be ind w/ bed mobility. 5. Pt to be grossly 4/5 MMT BUE within available ROM Prognosis: Good Occupational Therapy Plan: Patient to be seen by OT 2-4x a week M-F
--- NOTE | 2016-08-14 13:55 | Physical Therapy Tx Note ---
Physical Therapy Tx Note - Treatment Note Tolerated: Good Total Time Spent With Patient: 35 Physical Therapy Tx Note: Detail (The patient was in bed when PT arrived. The patient acheived supine to sit independently with head of bed raised up high and verbal cues to push up from railing. The patient acheived sit to stand independently with supervision for safety only. The patient ambulated with wheeled walker to the bathroom with supervision for safety. The patient was independent with toilet transfer and donning and doffing pants. The patient propelled her wheelchair a distance 250 feet x 1. The patient ambulated on 3 steps with 2 railings with CG of 2 for safety. The patient then propelled her wheelchair 100 feet x 1. The patient ambulated back to her bed and required moderate PA to lift LE's during sit to supine. The patient required minimal PA to scoot up in bed. The patient tolerated PT well today with increased independence with mobility.) Physical Therapy Problem List: Detail (1) LE weakness 2) Loss of LE ROM 3) Assistance with transfers and bed mobility 4) Limited ambulation distance and transfers 5) Impaired Balance) Physical Therapy Goals: 1) The patient will ambulate independently /supervision with wheeled walker distances of 150 feet plus. 2) The patient will be independent with alltransfers. 3) The patient will safely ambulate 2 stairs with CG of 1. 4) Increase LE strength by 1/3 to 1 full muscle grade. 5) Formally assess the patient's balance if tolerated. Physical Therapy Plan: PT M-F 1 to 2 times a day for LE strengthening, ROM and balance exercises, transfer training, bed mobility and gait training.
[2016-08-15] MEDS: PANTOPRAZOLE SODIUM 40 MG TABLET PO SCH (06:00)
[2016-08-15] MEDS: ASPIRIN 81 MG TABEC PO SCH (10:01)
[2016-08-15] MEDS: DOCUSATE SODIUM 100 MG CAPSULE PO SCH (10:01)
--- NOTE | 2016-08-15 10:53 | Physical Therapy Tx Note ---
Physical Therapy Tx Note - Treatment Note Tolerated: Good Total Time Spent With Patient: 35 Physical Therapy Tx Note: Detail (The patient was in bed when PT arrived. The patient acheived supine to sit with head of bed elevated independently with slowed movements. The patient aceived sit to stand Independently with 2 attempts and bed raised up. The patient ambulated to bathroom with use of wheeled walker with supervision for safety. The patient dressed independently with use of commercial hvac technician for pulling pants and briefs up. The patient ambulated to chair with wheeled walker and supervision. The patient completed the following LE strengthening exercises: hip marching and gluteal sets x 5 reps, hip adductor squeezes, LAQ, ankle pumps, Red T - band hip abduction and hamstring sets all x 10 reps. The patient was reclined in chair with call light in reach. The patient continues to do well with mobility with modification.) Physical Therapy Problem List: Detail (1) LE weakness 2) Loss of LE ROM 3) Assistance with transfers and bed mobility 4) Limited ambulation distance and transfers 5) Impaired Balance) Physical Therapy Goals: 1) The patient will ambulate independently /supervision with wheeled walker distances of 150 feet plus. 2) The patient will be independent with alltransfers. 3) The patient will safely ambulate 2 stairs with CG of 1. 4) Increase LE strength by 1/3 to 1 full muscle grade. 5) Formally assess the patient's balance if tolerated. Physical Therapy Plan: PT M-F 1 to 2 times a day for LE strengthening, ROM and balance exercises, transfer training, bed mobility and gait training.
--- NOTE | 2016-08-15 13:46 | Physical Therapy Tx Note ---
Physical Therapy Tx Note - Treatment Note Tolerated: Fair Total Time Spent With Patient: 30 Physical Therapy Tx Note: Detail (The patient required minimal PA for sit to and from stand from chair. The patient propelled wheelchair 220 feet x 1. The patient ambulated on 2 regular stairs with use of 2 railings with CG of 2 for safety. The patient was returned to room and required minimal PA for sit to and from stand from wheelchair. The patient required moderate PA to lift LE's for sit to supine and maximal PA of 2 for scooting up in bed due to increased fatigue and pain complaints. The patient was more fatigued and painful this pm.) Physical Therapy Problem List: Detail (1) LE weakness 2) Loss of LE ROM 3) Assistance with transfers and bed mobility 4) Limited ambulation distance and transfers 5) Impaired Balance) Physical Therapy Goals: 1) The patient will ambulate independently /supervision with wheeled walker distances of 150 feet plus. 2) The patient will be independent with alltransfers. 3) The patient will safely ambulate 2 stairs with CG of 1. 4) Increase LE strength by 1/3 to 1 full muscle grade. 5) Formally assess the patient's balance if tolerated. Physical Therapy Plan: PT M-F 1 to 2 times a day for LE strengthening, ROM and balance exercises, transfer training, bed mobility and gait training.
[2016-08-15] MEDS ORDERED: ZINC OXIDE 28.35 GM TUBE TOP PRN (14:58)
[2016-08-16] MEDS: PANTOPRAZOLE SODIUM 40 MG TABLET PO SCH (06:21)
[2016-08-16] MEDS: ASPIRIN 81 MG TABEC PO SCH (09:15)
[2016-08-16] MEDS: DOCUSATE SODIUM 100 MG CAPSULE PO SCH (09:15)
--- NOTE | 2016-08-16 10:44 | Occupational Therapy Tx Note ---
Occupational Therapy Tx Note - Treatment Note Occupational Therapy Treatment Note: Detail (Pt still eating breakfast, will attempt later if time permits.) Occupational Therapy Problem List: Detail (1. decreased ind w/ ADLs 2. weakness BUE 3. decreased ind w/ bed mob 4. decreased endurance) Occupational Therapy Goals: 1. Pt to be ind w/ toileting. 2. Pt to be ind w/ LB drsg with AD if needed. 3. Pt to be ind to walk household distances using 2WW. 4. Pt to be ind w/ bed mobility. 5. Pt to be grossly 4/5 MMT BUE within available ROM Occupational Therapy Plan: Patient to be seen by OT 2-4x a week M-F
--- NOTE | 2016-08-16 13:56 | Physical Therapy Tx Note ---
Physical Therapy Tx Note - Treatment Note Tolerated: Good Total Time Spent With Patient: 35 Physical Therapy Tx Note: Detail (The patient was in chair when PT arrived. The patient achieved sit to and from stand with minimal/CG of 1. The patient propelled wheelchair 300 feet x 1 independently. The patient ambulated on 3 stairs with 2 railings with CG of 2 for safety. The patient completed LE strengthening exercises included gluteal sets, LAQ, ankle pumps and marching x 10 reps, with red theraband hamstring curls, and hip abduction x 10 reps.) Physical Therapy Problem List: Detail (1) LE weakness 2) Loss of LE ROM 3) Assistance with transfers and bed mobility 4) Limited ambulation distance and transfers 5) Impaired Balance) Physical Therapy Goals: 1) The patient will ambulate independently /supervision with wheeled walker distances of 150 feet plus. 2) The patient will be independent with alltransfers. 3) The patient will safely ambulate 2 stairs with CG of 1. 4) Increase LE strength by 1/3 to 1 full muscle grade. 5) Formally assess the patient's balance if tolerated. Physical Therapy Plan: PT M-F 1 to 2 times a day for LE strengthening, ROM and balance exercises, transfer training, bed mobility and gait training.
--- NOTE | 2016-08-16 14:45 | Physician Progress Note ---
Subjective - Date Date of Progress Note: 08/16/16 - Admitting Diagnosis Diagnosis: deconditioning due to weakness and pain - Subjective Nursing Care Plan Problem List Activity Intolerance (Swing Bed) Start: 07/13/16 15: 12 Freq: Status: Active Created 07/13/16 15:12 SS (Rec: 07/13/16 15:12 SS [id number]) Knowledge Deficit (Swing Bed) Start: 07/13/16 15: 12 Freq: Status: Complete Created 07/13/16 15:12 SS (Rec: 07/13/16 15:12 SS [id number]) Edit Status 07/24/16 16:39 SAF (Rec: 07/24/16 16:39 SAF [id number]) Active=>Complete Pain (Swing Bed) Start: 07/13/16 15: 12 Freq: Status: Active Created 07/13/16 15:12 SS (Rec: 07/13/16 15:12 SS [id number]) Risk For Falls (Swing Bed) Start: 07/18/16 04: 16 Freq: Status: Active Created 07/18/16 04:16 MMN (Rec: 07/18/16 04:16 MMN [id number]) Edit Status 07/20/16 15:18 KMC (Rec: 07/20/16 15:18 KMC [id number]) Active=>Complete Edit Status 07/31/16 06:12 LPR (Rec: 07/31/16 06:12 LPR [id number]) Complete=>Active Subjective: 08/16/16: Care conference done today. Patient continues daily work with PT/OT; she continues to build strength and endurance. Patient continues to complain of hip and pelvis pain; she states that pain is well controlled at rest but pain increases with ambulation and mobility. Per physical therapy patient is very close to her baseline functional status given the arthritis in her hip. We continue to work with patient and family to frame realistic discharge plan; as of now anticipated discharge date of 08/28/15. Patients daughter continues to work on improving mobility around patients house; all floors are being made level, walk in shower being installed, hospital bed and lift chair available in home now. Will also plan to set patient up with home PT/OT, home health, and a visiting physician once discharged. Patient will also likely need prescription for wheelchair prior to discharge. Also recommend that patient have an on-call system such as life alert set up prior to discharge home. At this time it is PT/ OT recommendation that patient have 24/7 constant observation when she first returns home until she adapts back to her home environment General - Cognitive Patterns Speech: Normal Thought Process: Intact Thought Content: Normal - Communication Select best description of speech pattern: Clear Speech Ability to express ideas and wants: Usually Understood Understanding verbal content: Usually Understands - Mood and Behavior Patterns Appearance: Well Groomed Mood: Normal Attitude: Cooperative Motor Activity: Calm Affect: Appropriate Hallucinations: Denies - Physical Functioning Activity Level: Up with assist x1 Turning: Self ad janelle ROM Ability: Moves all extremities Assistive Devices: 2 Wheel Walker Activity Level Comment: NEEDS STAND BY ASSIST WITH 1 ASSIST FOR ANY AMBULATION OR TRANSFER Ambulation Ability: Needs Assist Bed Mobility: Independent Transfer Ability: Needs Assist Bathing Ability: Needs Assist Personal Hygiene: Independent Dressing Ability: Independent Eating (Feeding) Ability: Independent Toileting Ability: Needs Assist Administer Own Medication: Needs Assist Care Ability Comment: standby assist from sitting to standing and from standing to sitting. Unable to reach her feet and lower legs to wash or dress. - Continence Bowel Pattern: No Bowel Movement Bladder Pattern: Normal Meds/Allergies - Allergies Allergies Allergy/AdvReac Type Severity Reaction Status Date / Time Unable to Assess Allergy Unverified 07/10/16 19:07 - Active Medications Current Medications Acetaminophen (Tylenol 500mg Tab) 1,000 mg PO Q6H PRN PRN Reason: PAIN/TEMP Last Admin: 08/13/16 06:27 Dose: 1,000 mg Aspirin (Ecotrin (Ec)) 81 mg PO DAILY [facility] Last Admin: 08/16/16 09:15 Dose: 81 mg Docusate Sodium (Colace) 100 mg PO DAILY [facility] Last Admin: 08/16/16 09:15 Dose: 100 mg Ibuprofen (Motrin 600mg) 600 mg PO Q6H PRN PRN Reason: Pain - General Last Admin: 08/11/16 14:59 Dose: 600 mg Pantoprazole Sodium (Protonix) 40 mg PO DAILYAC [facility] Last Admin: 08/16/16 06:21 Dose: Not Given Zinc Oxide (Desitin) 28.35 gm TOP BID PRN PRN Reason: RASH Objective - Vital Signs Vital Signs: Vital Signs - Last 24 Hrs Temp Pulse Resp BP Pulse Ox 08/16/16 09:20 98.3 F 102 H 18 130/73 96 - General General Appearance: Alert, Oriented x3, Cooperative, No acute distress Limitations: No limitations - Head Head exam detail: negative: Abrasion, Contusion - Eye Eye exam: Normal appearance, EOMI. negative: Conjunctival injection Pupils: Normal accommodation - ENT ENT exam: Normal exam, Mucous membranes moist, Normal external ear exam, Normal orophraynx. negative: Mucous membranes dry Ear exam: Normal external inspection, External canal tenderness Nasal Exam: Normal inspection. negative: Active bleeding, Discharge, Sinus tenderness Mouth exam: Normal external inspection, Tongue normal. negative: Drooling Teeth exam: Dental caries, Other (poor dentition ) - Neck Neck exam: Normal inspection, Full ROM. negative: Tenderness - Respiratory Respiratory exam: Normal lung sounds bilaterally. negative: Accessory muscle use, Chest wall tenderness, Respiratory distress, Wheezes - Cardiovascular Cardiovascular Exam: Regular rate, Normal heart sounds, Irregular rhythm (a-fib) Peripheral Pulses: 2+: Radial (L) - GI/Abdominal GI/Abdominal exam: Soft, Normal bowel sounds. negative: Distended, Guarding, Tenderness - Rectal Rectal exam: Deferred - exam: Deferred - Extremities Extremities exam: Normal inspection, Tenderness (right hip), Other (chronic skin changes on bilateral lower legs ). negative: Calf tenderness - Back Back exam: Reports: Normal inspection. Denies: Rash noted - Neurological Neurological exam: Abnormal gait (patient continues to require assistance device for ambulation; she is able to move from sit to stand position using assistance device ), Alert, CN II-XII intact, Oriented X3 - Psychiatric Psychiatric exam: Normal affect, Normal mood - Skin Skin exam: Dry, Intact, Normal color, Warm. negative: Cyanosis, Diaphoretic H&P Results - Labs Result Diagrams: 07/18/16 05:50 07/18/16 05:50 Discharge Potential - Discharge Needs Community Services Used Prior to Admission: None Patient Discharge Plan Description: Return Home Community Services Needed at Discharge: [facility] Discharge Needs Comment: Pts daughter is lining up friends and family to stay with and assist pt with care needs once DC to home. Reviewed ability to put home health-RN, PT, OT, YARD DRIVER in placed at DC for skilled services and visiting physicians. Plan - Swing Bed Certification Initial Certification Due: 07/13/16 14 Day Re-Cert Due: 07/27/16 44 Day Re-Cert Due: 08/26/16 74 Day Re-Cert Due: 09/25/16 - Detailed Diagnosis and Plan (1) Generalized weakness Current Visit: No Status: Acute Base Code: R53.1 - WEAKNESS Comment: 08/16/16: Patient continues to participate in PT/OT Mon-Fri. - Goals will be to improve strength, balance, gate, and general mobility. Focusing on sit to stand movement and wheelchair mobility - Hillary is working with insurance. As it stands patient is approved through 08/20. We will reevaluate at that time and determine need for reapplication to insurance. - Nutritional consult done during in-pt stay. Patient continues to drink nutritional shakes and each nutritional pudding frequently. 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 Dr. Newby evaluated patient. - Dr. Newby recommended nsaids for right hip pain. no other recommendations at this time. Patient is not a surgical candidate. - Tylenol 1000mg q6h PRN ordered as well for pain, however patient does not like to take medications and rarely takes the Tylenol. - Patient has been enouraged to take a dose of Tylenol before PT/OT so that participation is not as painful (3) Atrial fibrillation Current Visit: No Status: Acute Qualifiers: Atrial fibrillation type: unspecified Qualified Code(s): I48.91 - Unspecified atrial fibrillation Base Code: I48.91 - UNSPECIFIED ATRIAL FIBRILLATION Comment: 08/16/16: - Cardiology Dr. Sanders evaluated patient on 07/11. Per cardiology recommendation will continue daily ASA. Patient often refuses medciation as she does not like taking any type of med - echocardiogram reviewed and normal EF%. - patient continues to deny chest pain, SOB or palpitations (4) DVT prophylaxis Current Visit: No Status: Acute Base Code: [id number] - Comment: 08/16/16: SCDs ordered to be worn while pt in bed. She is ambulating well now with Pt/OT coming in and working with her M-F. Additionally, Dr. Sanders recommended 81mg aspirin only for DVt prophylaxis with chornic afib due to patient's high fall risk (5) Skin texture changes Current Visit: Yes Status: Deleted Base Code: R23.4 - CHANGES IN SKIN TEXTURE Comment: 08/16/16: Patient has chronic skin changes on bilateral lower extremities. - Patient will need appt with podiatry as an out-pt. Referral can be made through [facility]. Recommend specialty clinic or Dr. Mckeon office in [place], [place] (6) Overgrown toenails Current Visit: Yes Status: Deleted Base Code: L60.2 - ONYCHOGRYPHOSIS Comment: 08/16/16: see above plan under "skin changes." (7) Full code status Current Visit: No Status: Acute Base Code: Z78.9 - OTHER SPECIFIED HEALTH STATUS Comment: 08/16/16: Patient is full code
[2016-08-17] MEDS: PANTOPRAZOLE SODIUM 40 MG TABLET PO SCH (06:48)
[2016-08-17] MEDS: DOCUSATE SODIUM 100 MG CAPSULE PO SCH (09:40)
[2016-08-17] MEDS: IBUPROFEN 600 MG TABLET PO PRN (09:40)
[2016-08-17] MEDS: ASPIRIN 81 MG TABEC PO SCH (09:41)
--- NOTE | 2016-08-17 10:54 | Physical Therapy Tx Note ---
Physical Therapy Tx Note - Treatment Note Tolerated: Fair Total Time Spent With Patient: 25 Physical Therapy Tx Note: Detail (Patient was seated in chair upon ROAD REPAIRER arrival. Patient states tired this morning and would like to nap. Patient transferred sit to and from stand min assist x1. Patient propelled wheelchair 220 feet using UEs. Patient transferred sit to and from stand mod assist x1. Patient refused further exercises. Patient displayed decreased strength and endurance with propelling wheelchair. Patient was left reclined in chair with call light within reach.) Physical Therapy Problem List: Detail (1) LE weakness 2) Loss of LE ROM 3) Assistance with transfers and bed mobility 4) Limited ambulation distance and transfers 5) Impaired Balance) Physical Therapy Goals: 1) The patient will ambulate independently /supervision with wheeled walker distances of 150 feet plus. 2) The patient will be independent with alltransfers. 3) The patient will safely ambulate 2 stairs with CG of 1. 4) Increase LE strength by 1/3 to 1 full muscle grade. 5) Formally assess the patient's balance if tolerated. Prognosis: Good Physical Therapy Plan: PT M-F 1 to 2 times a day for LE strengthening, ROM and balance exercises, transfer training, bed mobility and gait training.
--- NOTE | 2016-08-17 19:47 | Physical Therapy Tx Note ---
Physical Therapy Tx Note - Treatment Note Tolerated: Good Total Time Spent With Patient: 35 Physical Therapy Tx Note: Detail (Pt in bed sleeping upon arrival, awakened easily and eager to participate in therapy. Independent with bed mobility using bedcovers and bedrail, able to scoot legs off edge of bed and pull self to sitting w/o assist. She declined to use overhead trapeze, stating it hurts her wrists and "makes the veins in her hands pop out". She transferred sit/ stand to FWW w/CGA, ambulated 75 feet w/FWW w/CGA, stand/sit to recliner w/CGA. Performed 10 reps each of the following exercises: marching, knee extension, hamstring curls w/red theraband, hip abduction w/red theraband, heel slides, ankle plantarflexion and ankle eversion w/red theraband, rowing, UE diagonals, horizontal abduction, and biceps curls, all w/red theraband. Positioned chair in reclined position w/bedside table near, call light in reach, chair alarm in place. Nursing notified.) Physical Therapy Problem List: Detail (1) LE weakness 2) Loss of LE ROM 3) Assistance with transfers and bed mobility 4) Limited ambulation distance and transfers 5) Impaired Balance) Physical Therapy Goals: 1) The patient will ambulate independently /supervision with wheeled walker distances of 150 feet plus. 2) The patient will be independent with alltransfers. 3) The patient will safely ambulate 2 stairs with CG of 1. 4) Increase LE strength by 1/3 to 1 full muscle grade. 5) Formally assess the patient's balance if tolerated. Prognosis: Good Physical Therapy Plan: PT M-F 1 to 2 times a day for LE strengthening, ROM and balance exercises, transfer training, bed mobility and gait training.
[2016-08-18] MEDS: PANTOPRAZOLE SODIUM 40 MG TABLET PO SCH (06:36)
--- NOTE | 2016-08-18 09:44 | Occupational Therapy Tx Note ---
Occupational Therapy Tx Note - Treatment Note Tolerated: Fair Total Time Spent With Patient: 20 (ADL) Occupational Therapy Treatment Note: Detail (S: Pt reports she is very tired as she stayed up late watching TV. O: Supine to sit Indly with HOB raised. Sit to stand and amb to bathroom with 2 wheeled walker and SBA. Toileted on raised commode Indly. Doffed PJ top and donned shirt Indly. Sit to stand from commode with grab bar and amb to sink with walker and SBA. Washed face and combed hair in standing at sink. Amb back to EOB with walker and SBA. Pt refusing further tx this am, reporting she is too tired. Sit to supine with mod difficulty but Indly. A: Ind with bed mobility today, increased ambulation /static standing tolerance) Occupational Therapy Problem List: Detail (1. decreased ind w/ ADLs 2. weakness BUE 3. decreased ind w/ bed mob 4. decreased endurance) Occupational Therapy Goals: 1. Pt to be ind w/ toileting. 2. Pt to be ind w/ LB drsg with AD if needed. 3. Pt to be ind to walk household distances using 2WW. 4. Pt to be ind w/ bed mobility. 5. Pt to be grossly 4/5 MMT BUE within available ROM Prognosis: Good Occupational Therapy Plan: Patient to be seen by OT 2-4x a week M-F
[2016-08-18] MEDS: DOCUSATE SODIUM 100 MG CAPSULE PO SCH (10:59)
[2016-08-18] MEDS: IBUPROFEN 600 MG TABLET PO PRN (11:00)
[2016-08-18] MEDS: ASPIRIN 81 MG TABEC PO SCH (11:00)
--- NOTE | 2016-08-18 11:53 | Physical Therapy Tx Note ---
Physical Therapy Tx Note - Treatment Note Tolerated: Good Total Time Spent With Patient: 40 Physical Therapy Tx Note: Detail (The patient was in bed when PT arrived. The patient acheived supine to sit independently and attempted to raise the head of her bed by pushing the buttons. The patient was independent with sit to stand from bed. The patient ambulated with wheeled walker with supervision for safety a distance of 30 feet x 1. The patient propelled her wheelchair a distance of 250 feet x 1. The patient climbed 3 steps with use of 2 railings with CG of 1 for safety and SBA of 1. The patient was returned to room and ambulated to chair 11 feet with wheeled walker and supervision. Call light was placed within reach. The patient consistently acheived sit to stand from raised surface however, more effort and time was required as the patient became more fatigued.) Physical Therapy Problem List: Detail (1) LE weakness 2) Loss of LE ROM 3) Assistance with transfers and bed mobility 4) Limited ambulation distance and transfers 5) Impaired Balance) Physical Therapy Goals: 1) The patient will ambulate independently /supervision with wheeled walker distances of 150 feet plus. 2) The patient will be independent with alltransfers. 3) The patient will safely ambulate 2 stairs with CG of 1. 4) Increase LE strength by 1/3 to 1 full muscle grade. 5) Formally assess the patient's balance if tolerated. Physical Therapy Plan: PT M-F 1 to 2 times a day for LE strengthening, ROM and balance exercises, transfer training, bed mobility and gait training.
[2016-08-19] MEDS: PANTOPRAZOLE SODIUM 40 MG TABLET PO SCH (07:04)
[2016-08-19] MEDS: DOCUSATE SODIUM 100 MG CAPSULE PO SCH (11:37)
[2016-08-19] MEDS: ASPIRIN 81 MG TABEC PO SCH (11:37)
[2016-08-19] MEDS: IBUPROFEN 600 MG TABLET PO PRN (11:37)
[2016-08-20] MEDS: PANTOPRAZOLE SODIUM 40 MG TABLET PO SCH (07:50)
[2016-08-20] MEDS: DOCUSATE SODIUM 100 MG CAPSULE PO SCH (10:18)
[2016-08-20] MEDS: ASPIRIN 81 MG TABEC PO SCH (10:20)
[2016-08-21] MEDS: PANTOPRAZOLE SODIUM 40 MG TABLET PO SCH (06:50)
[2016-08-21] MEDS: ASPIRIN 81 MG TABEC PO SCH (09:35)
[2016-08-21] MEDS: DOCUSATE SODIUM 100 MG CAPSULE PO SCH (09:35)
[2016-08-22] MEDS: PANTOPRAZOLE SODIUM 40 MG TABLET PO SCH (07:02)
[2016-08-22] MEDS: ASPIRIN 81 MG TABEC PO SCH (09:05)
[2016-08-22] MEDS: DOCUSATE SODIUM 100 MG CAPSULE PO SCH (09:06)
--- NOTE | 2016-08-22 11:44 | Occupational Therapy Tx Note ---
Occupational Therapy Tx Note - Treatment Note Tolerated: Fair Total Time Spent With Patient: 30 (ther ex) Occupational Therapy Treatment Note: Detail (S: Pt up in chair, reports being very tired today. O: Sit to stand with min assist. Took several steps to wheelchair with 2 wheeled walker and CG assist. Pt propelled wheelchair to rehab gym with several small rest breaks due to arm fatigue. Pt completed sophia UE strengthening/endurance activity with 1 1/2# wrist weights and repetitive overhead reaching. Pt performed sit to stand from wheelchair with min assist and was able to perform steps (up 2 standard height, down 4 small height and then reverse) with CG assist. Pt propelled self back to room with 2 short rest breaks. Sit to stand and took several steps to chair with walker and CG assist. A: Pt very fatigued today and required increased assistance for sit to stand) Occupational Therapy Problem List: Detail (1. decreased ind w/ ADLs 2. weakness BUE 3. decreased ind w/ bed mob 4. decreased endurance) Occupational Therapy Goals: 1. Pt to be ind w/ toileting. 2. Pt to be ind w/ LB drsg with AD if needed. 3. Pt to be ind to walk household distances using 2WW. 4. Pt to be ind w/ bed mobility. 5. Pt to be grossly 4/5 MMT BUE within available ROM Prognosis: Good Occupational Therapy Plan: Patient to be seen by OT 2-4x a week M-F
--- NOTE | 2016-08-22 13:36 | Physical Therapy Tx Note ---
Physical Therapy Tx Note - Treatment Note Tolerated: Fair Total Time Spent With Patient: 25 Physical Therapy Tx Note: Detail (The patient refused to ambulate. The patient completed LE and UE strengthening exercises including: Red T- band : bicep curls , tricep curls, rowing, PNF diagonals D1 and D2, ankle pumps, hip adductor squeezes, hip marching, Red T-band hip abduction, LAQ, hamstring curls all x 12 reps. Hamstring stretches. The patient also completed theraputty exercises x 5 minutes. The patient was reclined with call light in place.) Physical Therapy Problem List: Detail (1) LE weakness 2) Loss of LE ROM 3) Assistance with transfers and bed mobility 4) Limited ambulation distance and transfers 5) Impaired Balance) Physical Therapy Goals: 1) The patient will ambulate independently /supervision with wheeled walker distances of 150 feet plus. 2) The patient will be independent with alltransfers. 3) The patient will safely ambulate 2 stairs with CG of 1. 4) Increase LE strength by 1/3 to 1 full muscle grade. 5) Formally assess the patient's balance if tolerated. Physical Therapy Plan: PT M-F 1 to 2 times a day for LE strengthening, ROM and balance exercises, transfer training, bed mobility and gait training.
[2016-08-23] MEDS: PANTOPRAZOLE SODIUM 40 MG TABLET PO SCH (07:33)
--- NOTE | 2016-08-23 11:05 | Physician Progress Note ---
Subjective - Date Date of Progress Note: 08/23/16 - Admitting Diagnosis Diagnosis: deconditioning due to weakness and pain - Subjective Events since last encounter: sitting in chair comfortably. tolerating meals. doing well in therapy. no new concerns Nursing Care Plan Problem List Activity Intolerance (Swing Bed) Start: 07/13/16 15: 12 Freq: Status: Active Created 07/13/16 15:12 SS (Rec: 07/13/16 15:12 SS [id number]) Knowledge Deficit (Swing Bed) Start: 07/13/16 15: 12 Freq: Status: Complete Created 07/13/16 15:12 SS (Rec: 07/13/16 15:12 SS [id number]) Edit Status 07/24/16 16:39 SAF (Rec: 07/24/16 16:39 SAF [id number]) Active=>Complete Pain (Swing Bed) Start: 07/13/16 15: 12 Freq: Status: Active Created 07/13/16 15:12 SS (Rec: 07/13/16 15:12 SS [id number]) Risk For Falls (Swing Bed) Start: 07/18/16 04: 16 Freq: Status: Active Created 07/18/16 04:16 MMN (Rec: 07/18/16 04:16 MMN [id number]) Edit Status 07/20/16 15:18 KMC (Rec: 07/20/16 15:18 KMC [id number]) Active=>Complete Edit Status 07/31/16 06:12 LPR (Rec: 07/31/16 06:12 LPR [id number]) Complete=>Active General - Cognitive Patterns Speech: Normal Thought Process: Intact Thought Content: Normal - Communication Select best description of speech pattern: Clear Speech Ability to express ideas and wants: Usually Understood Understanding verbal content: Usually Understands - Mood and Behavior Patterns Appearance: Well Groomed Mood: Normal Mood Comment: eager to get better Attitude: Cooperative Motor Activity: Calm Affect: Appropriate Hallucinations: Denies - Physical Functioning Activity Level: Up with assist x1 Turning: Self ad janelle ROM Ability: Moves all extremities Assistive Devices: 2 Wheel Walker, Hospital Bed Activity Level Comment: NEEDS STAND BY ASSIST WITH 1 ASSIST FOR ANY AMBULATION OR TRANSFER Ambulation Ability: Needs Assist Bed Mobility: Independent Transfer Ability: Needs Assist Bathing Ability: Needs Assist Personal Hygiene: Independent Dressing Ability: Independent Eating (Feeding) Ability: Independent Toileting Ability: Needs Assist Administer Own Medication: Needs Assist Care Ability Comment: standby assist from sitting to standing and from standing to sitting. Unable to reach her feet and lower legs to wash or dress. - Continence Bowel Pattern: Normal for Patient Bladder Pattern: Normal Meds/Allergies - Allergies Allergies Allergy/AdvReac Type Severity Reaction Status Date / Time Unable to Assess Allergy Unverified 07/10/16 19:07 - Active Medications Current Medications Acetaminophen (Tylenol 500mg Tab) 1,000 mg PO Q6H PRN PRN Reason: PAIN/TEMP Last Admin: 08/13/16 06:27 Dose: 1,000 mg Aspirin (Ecotrin (Ec)) 81 mg PO DAILY [facility] Last Admin: 08/22/16 09:05 Dose: 81 mg Docusate Sodium (Colace) 100 mg PO DAILY [facility] Last Admin: 08/22/16 09:06 Dose: 100 mg Ibuprofen (Motrin 600mg) 600 mg PO Q6H PRN PRN Reason: Pain - General Last Admin: 08/19/16 11:37 Dose: 600 mg Pantoprazole Sodium (Protonix) 40 mg PO DAILYAC [facility] Last Admin: 08/23/16 07:33 Dose: 40 mg Zinc Oxide (Desitin) 28.35 gm TOP BID PRN PRN Reason: RASH Objective - Vital Signs Vital Signs: Vital Signs - Last 24 Hrs Temp Pulse Resp BP Pulse Ox 08/23/16 08:44 99.0 F 106 H 18 128/73 99 - General General Appearance: Alert, Oriented x3, Cooperative, No acute distress Limitations: No limitations - Head Head exam detail: negative: Abrasion, Contusion - Eye Eye exam: Normal appearance, EOMI. negative: Conjunctival injection Pupils: Normal accommodation - ENT ENT exam: Normal exam, Mucous membranes moist, Normal external ear exam, Normal orophraynx. negative: Mucous membranes dry Ear exam: Normal external inspection, External canal tenderness Nasal Exam: Normal inspection. negative: Active bleeding, Discharge, Sinus tenderness Mouth exam: Normal external inspection, Tongue normal. negative: Drooling Teeth exam: Dental caries, Other (poor dentition ) - Neck Neck exam: Normal inspection, Full ROM. negative: Tenderness - Respiratory Respiratory exam: Normal lung sounds bilaterally. negative: Accessory muscle use, Chest wall tenderness, Respiratory distress, Wheezes - Cardiovascular Cardiovascular Exam: Regular rate, Normal heart sounds, Irregular rhythm (a-fib) Peripheral Pulses: 2+: Radial (L) - GI/Abdominal GI/Abdominal exam: Soft, Normal bowel sounds. negative: Distended, Guarding, Tenderness - Rectal Rectal exam: Deferred - exam: Deferred - Extremities Extremities exam: Normal inspection, Tenderness (right hip), Other (chronic skin changes on bilateral lower legs ). negative: Calf tenderness - Back Back exam: Reports: Normal inspection. Denies: Rash noted - Neurological Neurological exam: Abnormal gait (patient continues to require assistance device for ambulation; she is able to move from sit to stand position using assistance device ), Alert, CN II-XII intact, Oriented X3 - Psychiatric Psychiatric exam: Normal affect, Normal mood - Skin Skin exam: Dry, Intact, Normal color, Warm. negative: Cyanosis, Diaphoretic H&P Results - Labs Result Diagrams: 07/18/16 05:50 07/18/16 05:50 Discharge Potential - Discharge Needs Community Services Used Prior to Admission: None Patient Discharge Plan Description: Return Home Community Services Needed at Discharge: Home Delivered Meals, Home Health Nurse , Occupational Therapy, Physical Therapy, [facility] Discharge Needs Comment: [facility]erral to [facility] for RN, PT, OT, BR[employer] F[employer]ER [employer] and nurse alert being processed. Referral for Visiting Physicians being processed. Request for Meals on Wheels being called. Referral to [facility] already completed and can striper name and phone number provided to daughter today. Plan - Swing Bed Certification Initial Certification Due: 07/13/16 14 Day Re-Cert Due: 07/27/16 44 Day Re-Cert Due: 08/26/16 74 Day Re-Cert Due: 09/25/16 - Detailed Diagnosis and Plan (1) Pelvic fracture Current Visit: Yes Status: Acute Qualifiers: Encounter type: subsequent encounter Base Code: S32.9XXA - FRACTURE OF UNSP PARTS OF LUMBOSACRAL SPINE AND PELVIS, INIT Comment: 08/23/16: patient experienced a fall 07/30/16 with possible superior and inferior left rami fractures. Case was discussed with Dr. Newby who recommended adequate pain control and PT/OT as tolerated. Patient seems to be doing well with pain control. -PT/OT state she has been actively participating with minimal pain -continue PT/OT -continue ibuprofen for pain control as needed (2) Generalized weakness Current Visit: No Status: Acute Base Code: R53.1 - WEAKNESS Comment: 08/23/16: Patient continues to participate in PT/OT Mon-Fri. - Goals will be to improve strength, balance, gate, and general mobility. Focusing on sit to stand movement and wheelchair mobility - Hillary is working with insurance. As it stands patient is approved through . - We will reevaluate at that time and determine need for reapplication to insurance. - Nutritional consult done during in-pt stay. Patient continues to drink nutritional shakes and each nutritional pudding frequently. (3) Atrial fibrillation Current Visit: No Status: Acute Qualifiers: Atrial fibrillation type: unspecified Qualified Code(s): I48.91 - Unspecified atrial fibrillation Base Code: I48.91 - UNSPECIFIED ATRIAL FIBRILLATION Comment: 08/23/16: - Cardiology Dr. Sanders evaluated patient on 07/11. Per cardiology recommendation will continue daily ASA. Patient often refuses medciation as she does not like taking any type of med - echocardiogram reviewed and normal EF%. 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 Dr. Newby evaluated patient. - Dr. Newby recommended nsaids for right hip pain. no other recommendations at this time. Patient is not a surgical candidate. - Tylenol 1000mg q6h PRN ordered as well for pain, however patient does not like to take medications and rarely takes the Tylenol. - Patient has been enouraged to take a dose of Tylenol before PT/OT so that participation is not as painful (5) Full code status Current Visit: No Status: Acute Base Code: Z78.9 - OTHER SPECIFIED HEALTH STATUS Comment: 08/23/16: Patient is full code
[2016-08-23] MEDS: ASPIRIN 81 MG TABEC PO SCH (11:57)
[2016-08-23] MEDS: DOCUSATE SODIUM 100 MG CAPSULE PO SCH (11:57)
[2016-08-23] MEDS: IBUPROFEN 600 MG TABLET PO PRN (11:57)
--- NOTE | 2016-08-23 12:00 | Physical Therapy Tx Note ---
Physical Therapy Tx Note - Treatment Note Tolerated: Good Total Time Spent With Patient: 30 Physical Therapy Tx Note: Detail (The patient's daughter was present for PT treatment. The patient acheived sit to and from stand independently with increased effort. The patient propelled wheelchair 100 feet with both arms. The patient ambulated on 2 to 3 stairs with use of 2 railings with supervision for safety. The patient also ambulated on 3 stairs with use of railing and folded walker going down and one railing sideways going up with supervision for safety. The patient refused to wear gait belt and PT gaurding,pushing PT's hands away. The patient's mobility has improved, the patient is requiring less assistance with mobility.) Physical Therapy Problem List: Detail (1) LE weakness 2) Loss of LE ROM 3) Assistance with transfers and bed mobility 4) Limited ambulation distance and transfers 5) Impaired Balance) Physical Therapy Goals: 1) The patient will ambulate independently /supervision with wheeled walker distances of 150 feet plus. 2) The patient will be independent with alltransfers. 3) The patient will safely ambulate 2 stairs with CG of 1. 4) Increase LE strength by 1/3 to 1 full muscle grade. 5) Formally assess the patient's balance if tolerated. Physical Therapy Plan: PT M-F 1 to 2 times a day for LE strengthening, ROM and balance exercises, transfer training, bed mobility and gait training.
--- NOTE | 2016-08-23 14:07 | Occupational Therapy Tx Note ---
Occupational Therapy Tx Note - Treatment Note Tolerated: Good Total Time Spent With Patient: 45 (ther activity) Occupational Therapy Treatment Note: Detail (S: Pt cooperative and pleasant. Wants to strengthen legs. O: Sit to stand and amb to bathroom with 2 wheeled walker and SBA. Toileted Indly. Amb back to wheelchair and transported to rehab gym. Pt completed static standing activity at counter while performing overhead reaching into cupboards and repetitive overhead reaching activity. Pt able to static stand x 2, first 4 minutes, second stand 6 minutes before fatigued. Pt transported back to room. Sit to stand and amb to EOB with walker Indly. Sit to supine Indly with HOB raised. A: Pt continues to increase standing tolerance and reports less pain with activity, Ind with bed mobility using hospital bed) Occupational Therapy Problem List: Detail (1. decreased ind w/ ADLs 2. weakness BUE 3. decreased ind w/ bed mob 4. decreased endurance) Occupational Therapy Goals: 1. Pt to be ind w/ toileting. 2. Pt to be ind w/ LB drsg with AD if needed. 3. Pt to be ind to walk household distances using 2WW. 4. Pt to be ind w/ bed mobility. 5. Pt to be grossly 4/5 MMT BUE within available ROM Prognosis: Good Occupational Therapy Plan: Patient to be seen by OT 2-4x a week M-F
[2016-08-24] MEDS: PANTOPRAZOLE SODIUM 40 MG TABLET PO SCH (06:52)
[2016-08-24] MEDS: ASPIRIN 81 MG TABEC PO SCH (10:23)
[2016-08-24] MEDS: DOCUSATE SODIUM 100 MG CAPSULE PO SCH (10:23)
--- NOTE | 2016-08-24 11:56 | Physical Therapy Tx Note ---
Physical Therapy Tx Note - Treatment Note Tolerated: Good Total Time Spent With Patient: 30 Physical Therapy Tx Note: Detail (Patient states tired this morning. Patient transferred supine to sit independently. Patient transferred sit to and from stand SBA x1. Patient ambulated 5 feet with wheeled walker SBA x1. Patient performed the following exercises x10 reps each: seated heel raises, seated toe raises, seated marching, LAQ, hamstring curls with red theraband, seated hip abduction with red theraband, bicep curls with red theraband, tricep extension with red theraband, PNF D1 and D2 flexion and extension, rowing with red theraband, shoulder extension with red theraband, shoulder horizontal abduction , and shoulder external rotation with red theraband. Patient tolerated treatment well. Patient reports slightly fatigued after treatment. Patient was left seated in chair with call light within reach.) Physical Therapy Problem List: Detail (1) LE weakness 2) Loss of LE ROM 3) Assistance with transfers and bed mobility 4) Limited ambulation distance and transfers 5) Impaired Balance) Physical Therapy Goals: 1) The patient will ambulate independently /supervision with wheeled walker distances of 150 feet plus. 2) The patient will be independent with alltransfers. 3) The patient will safely ambulate 2 stairs with CG of 1. 4) Increase LE strength by 1/3 to 1 full muscle grade. 5) Formally assess the patient's balance if tolerated. Prognosis: Good Physical Therapy Plan: PT M-F 1 to 2 times a day for LE strengthening, ROM and balance exercises, transfer training, bed mobility and gait training.
--- NOTE | 2016-08-24 14:30 | Physical Therapy Tx Note ---
Physical Therapy Tx Note - Treatment Note Tolerated: Good Total Time Spent With Patient: 30 Physical Therapy Tx Note: Detail (Patient states LEs weak this afternoon. Patient transferred sit to and from stand min assist x1. Patient ambulated 37 feet with wheeled walker SBA x1. Patient performed the following exercises x10 each: standing heel raises, seated toe raises, seated marching, seated hip abduction with red theraband, isometric hip adduction, LAQ, quad sets, hamstring curls with red theraband, abdominal isometrics, glut squeezes, shoulder adduction with red theraband, shoulder abduction with red theraband, and horizontal abduction with red theraband. Patient transferred sit to and from stand SBA x1. Patient ambulated 5 feet with wheeled walker SBA x1. Patient transferred sit to supine SBA x1. Patient tolerated treatment well. Patient reports tired after treatment. Patient was left supine in bed with call light within reach.) Physical Therapy Problem List: Detail (1) LE weakness 2) Loss of LE ROM 3) Assistance with transfers and bed mobility 4) Limited ambulation distance and transfers 5) Impaired Balance) Physical Therapy Goals: 1) The patient will ambulate independently /supervision with wheeled walker distances of 150 feet plus. 2) The patient will be independent with alltransfers. 3) The patient will safely ambulate 2 stairs with CG of 1. 4) Increase LE strength by 1/3 to 1 full muscle grade. 5) Formally assess the patient's balance if tolerated. Prognosis: Good Physical Therapy Plan: PT M-F 1 to 2 times a day for LE strengthening, ROM and balance exercises, transfer training, bed mobility and gait training.
[2016-08-25] MEDS: PANTOPRAZOLE SODIUM 40 MG TABLET PO SCH (06:39)
[2016-08-25] MEDS: ASPIRIN 81 MG TABEC PO SCH ×2 (09:11→11:41)
[2016-08-25] MEDS: IBUPROFEN 600 MG TABLET PO PRN (09:11)
[2016-08-25] MEDS: DOCUSATE SODIUM 100 MG CAPSULE PO SCH ×2 (09:11→11:41)
--- NOTE | 2016-08-25 11:19 | Occupational Therapy Tx Note ---
Occupational Therapy Tx Note - Treatment Note Tolerated: Other (Patient Refused treatment) Total Time Spent With Patient: 0 Occupational Therapy Treatment Note: Detail (Visited patient at 9 a.m. and 11 a.m. for OT treatment but was refused both times. At 9 a.m. patient refused secondary to being to "too full." Patient refused at 11 a.m. secondary being "too tired." She did have to use the bathroom at this time. Ind bed mob & sit<> stand t/f w/ 2WW. Amb from EOB>bathroom w/ SBA. Completed toileting and toilet H ind. Patient amb from bathroom > bedside chair w/ 2WW and SBA. Nsg came in to distribute medications to patient but patient refused this as well.) Occupational Therapy Problem List: Detail (1. decreased ind w/ ADLs 2. weakness BUE 3. decreased ind w/ bed mob 4. decreased endurance) Occupational Therapy Goals: 1. Pt to be ind w/ toileting. 2. Pt to be ind w/ LB drsg with AD if needed. 3. Pt to be ind to walk household distances using 2WW. 4. Pt to be ind w/ bed mobility. 5. Pt to be grossly 4/5 MMT BUE within available ROM Occupational Therapy Plan: Patient to be seen by OT 2-4x a week M-F
--- NOTE | 2016-08-25 17:42 | Physical Therapy Tx Note ---
Physical Therapy Tx Note - Treatment Note Tolerated: Good Total Time Spent With Patient: 25 Physical Therapy Tx Note: Detail (Patient was supine in bed upon APPLICATIONS DEVELOPER arrival. Patient states no new complaints. Patient transferred supine to sit independently. Patient transferred sit to and from stand SBA x1. Patient ambulated 5 feet with wheeled walker SBA x1. Patient performed the following exercises x10-15 reps each: LAQ, seated marching, seated heel raises, seated toe raises, hamstring curls with red theraband, seated hip abduction with red theraband, isometric hip adduction, shoulder external rotation with red theraband, shoulder internal rotation with red theraband, rowing with red theraband, shoulder extension with red theraband, shoulder horiztonal abduction with red theraband, shoulder adduction with red theraband, PNF D1 and D2 flexion and extension diagonals with red theraband, shoulder abduction with red theraband, and dips. Patient tolerated treatment well. Patient refused further exercises and ambulation. Patient was left seated in chair with call light within reach.) Physical Therapy Problem List: Detail (1) LE weakness 2) Loss of LE ROM 3) Assistance with transfers and bed mobility 4) Limited ambulation distance and transfers 5) Impaired Balance) Physical Therapy Goals: 1) The patient will ambulate independently /supervision with wheeled walker distances of 150 feet plus. 2) The patient will be independent with alltransfers. 3) The patient will safely ambulate 2 stairs with CG of 1. 4) Increase LE strength by 1/3 to 1 full muscle grade. 5) Formally assess the patient's balance if tolerated. Prognosis: Good Physical Therapy Plan: PT M-F 1 to 2 times a day for LE strengthening, ROM and balance exercises, transfer training, bed mobility and gait training.
[2016-08-26] MEDS: PANTOPRAZOLE SODIUM 40 MG TABLET PO SCH (06:21)
[2016-08-26] MEDS: DOCUSATE SODIUM 100 MG CAPSULE PO SCH (09:55)
[2016-08-26] MEDS: ASPIRIN 81 MG TABEC PO SCH (09:55)
[2016-08-27] MEDS: PANTOPRAZOLE SODIUM 40 MG TABLET PO SCH (06:16)
[2016-08-27] MEDS: DOCUSATE SODIUM 100 MG CAPSULE PO SCH (09:51)
[2016-08-27] MEDS: ASPIRIN 81 MG TABEC PO SCH (09:52)
[2016-08-28] MEDS: PANTOPRAZOLE SODIUM 40 MG TABLET PO SCH (06:38)
[2016-08-28] MEDS: DOCUSATE SODIUM 100 MG CAPSULE PO SCH (09:16)
[2016-08-28] MEDS: ASPIRIN 81 MG TABEC PO SCH (09:16)
--- NOTE | 2016-08-28 14:01 | Discharge Summary ---
Providers Discharge Summary Date: 08/29/16 Date of admission: 07/13/16 14:27 Expected Date of Discharge: 08/29/16 Attending physician: SKYE DEVINE Primary care physician: RONY OH D.O. Consults: Consult Orders 07/14/16 11:32 Consult NOW Consulting Provider: RANJAN NEWBY Physician Instructions: see as an OP. eval and tx. Reason For Exam: R hip painful, screw displacement, bone on bone 07/14/16 11:36 Consult NOW Consulting Provider: PABLO GARCÍA Physician Instructions: see as an OP. Eval and tx. Reason For Exam: poor foot and nail care-very long thick nails 07/30/16 22:35 Consult NOW Consulting Provider: RANJAN NEWBY Physician Instructions: Reason For Exam: possible acute fracture left pubic rami Physical Exam - Vital Signs Vital Signs: Vital Signs - Last 24 Hrs Temp Pulse Resp BP Pulse Ox 08/28/16 08:21 97.9 F 91 H 18 117/71 94 L - General General Appearance: Alert, Oriented x3, Cooperative, No acute distress Limitations: No limitations - Head Head exam detail: negative: Abrasion, Contusion - Eye Eye exam: Normal appearance, EOMI. negative: Conjunctival injection Pupils: Normal accommodation - ENT ENT exam: Normal exam, Mucous membranes moist, Normal external ear exam, Normal orophraynx. negative: Mucous membranes dry Ear exam: Normal external inspection, External canal tenderness Nasal Exam: Normal inspection. negative: Active bleeding, Discharge, Sinus tenderness Mouth exam: Normal external inspection, Tongue normal. negative: Drooling Teeth exam: Dental caries, Other (poor dentition ) - Neck Neck exam: Normal inspection, Full ROM. negative: Tenderness - Respiratory Respiratory exam: Normal lung sounds bilaterally. negative: Accessory muscle use, Chest wall tenderness, Respiratory distress, Wheezes - Cardiovascular Cardiovascular Exam: Regular rate, Normal heart sounds, Irregular rhythm (a-fib) Peripheral Pulses: 2+: Radial (L) - GI/Abdominal GI/Abdominal exam: Soft, Normal bowel sounds. negative: Distended, Guarding, Tenderness - Rectal Rectal exam: Deferred - exam: Deferred - Extremities Extremities exam: Normal inspection, Tenderness (right hip), Other (chronic skin changes on bilateral lower legs ). negative: Calf tenderness - Back Back exam: Reports: Normal inspection. Denies: Rash noted - Neurological Neurological exam: Abnormal gait (patient continues to require assistance device for ambulation; she is able to move from sit to stand position using assistance device ), Alert, CN II-XII intact, Oriented X3 - Psychiatric Psychiatric exam: Normal affect, Normal mood - Skin Skin exam: Dry, Intact, Normal color, Warm. negative: Cyanosis, Diaphoretic Hospitalization - Hospitalization Admission Diagnosis: deconditioning due to weakness and pain - Problem List (1) Pelvic fracture Current Visit: Yes Status: Acute Discharge Diagnosis: Encounter type: subsequent encounter Base Code: S32.9XXA - FRACTURE OF UNSP PARTS OF LUMBOSACRAL SPINE AND PELVIS, INIT Comment: 08/29/16: - patient experienced a fall 07/30/16 with possible superior and inferior left rami fractures. - Case was discussed with Dr. Newby who recommended adequate pain control and PT/OT as tolerated. Patient seems to be doing well with pain control. - PT/OT state she has been actively participating with minimal pain. - she's not been requiring NSAIDS daily, either. - continue PT/OT as outpatient. - continue ibuprofen for pain control as needed. encouraged patient to take with food. - f/up with PCP in 5-7 days for follow up from rehab stay (2) Generalized weakness Current Visit: No Status: Acute Base Code: R53.1 - WEAKNESS Comment: 08/29/16: - Patient will continue PT/OT as outpatient. - Goals will be to continue to improve strength, balance, gate, and general mobility. Focusing on sit to stand movement and wheelchair mobility - wheel chair order placed for patient to use at home as needed - Nutritional consult done during in-pt stay. Patient continues to drink nutritional shakes and each nutritional pudding frequently. (3) Atrial fibrillation Current Visit: No Status: Acute Discharge Diagnosis: Atrial fibrillation type: unspecified Qualified Code(s): I48.91 - Unspecified atrial fibrillation Base Code: I48.91 - UNSPECIFIED ATRIAL FIBRILLATION Comment: 08/29/16: - Cardiology Dr. Sanders evaluated patient on 07/11. Per cardiology recommendation will continue daily ASA. Patient often refuses medciation as she does not like taking any type of med - echocardiogram reviewed and normal EF%. - patient continues to deny chest pain, SOB or palpitations - follow up with PCP within 5-7 days of D/C. 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 Dr. Newby evaluated patient during her stay. - Dr. Newby recommended nsaids for right hip pain. no other recommendations at this time. Patient is not a surgical candidate. - Tylenol and Motrin encouraged for pain. I ask that she take Motrin with food. - Patient has been enouraged to take a dose of Tylenol before PT/OT so that participation is not as painful - PT/OT as outpatient. (5) Full code status Current Visit: No Status: Acute Base Code: Z78.9 - OTHER SPECIFIED HEALTH STATUS Comment: 08/29/16: Patient remained full code during her stay. - Hospitalization Course Disposition: Home Health Service Hospital Course: 89yo F transitioned to sub acute rehab for continuing work with PT/OT. Patient initially suffered a fall in her home 07/10/16 Patients had not following with a primary care provider in many years; patient reported last seeing provider in 2006 or 2007. Since hospital admission pt has newly established with [facility] family practice clinic for primary care. Patient denies health problems at her baseline but does report history of fall 11year ago resulting in right hip replacement; due to this injury patient suffers from chronic bilateral hip (worse in right hip) and pelvic pain. [place] At patients baseline she is independent will all acts of daily living but over the last few months she has had difficulty showering and cleaning her home. Patient has a daughter that frequently tries to reach out to help her mother but patient is stubborn and has even gone to the extreme of locking her daughter out of her home. Patient and family are very concerned about patients fall risk and safety at home when she is this weak. Patient presented to [facility] ED after a fall in her home on 07/10/16. Fracture was ruled out through imaging studies. But upon cardiac evaluation patient was found to be in atrial fibrillation; because pt had not seen a provider in many years it was unknown of a-fib was acute onset or chronic. [facility] cardiology Dr. Sanders consulted for a-fib; per cardiology recommendation patient is to continue daily ASA but is not a good candidate for further anticoagulation, rhythm or rate control; out-patient echocardiogram recommended to determine patients baseline. Over hospital admission PT/OT was consulted due to patients weakness and bilateral hip pain. After therapy evaluation it was noted that patient would likely benefit from continued therapy and was a good candidate for YENY. Today patient continues to feel weak but is looking forward to starting PT/OT. After discussion with patient and her daughter the goal at this time will be for patient to return home to independent living after YENY is finished. Goals will be to build strength and endurance through work with PT/OT; nutrition consult; establish with PCP ([facility] family practice); coordinate out-patient follow up with specialties when appropriate. Vitals WNL. Labs continue to show elevated BUN 34 and Cr 1.3; otherwise labs are grossly unremarkable for acute process. PCP: [facility] family practice (newly established patient) Procedures: Imaging and X-Rays 07/30/16 17:45 WRIST, LEFT 3 VIEWS [RAD] Stat 07/30/16 18:16 PELVIS, AP [RAD] Stat Cardiology Procedures 07/14/16 11:41 Echo W/CF & Cardiac Doppler ONCE Abnormal Labs: Abnormal Lab Results 07/18/16 07/18/16 Range/Units 05:50 05:50 RBC 3.32 L (3.80-5.40) M/uL Hgb 9.9 L (11.6-16.0) gm/dl Hct 31.3 L (35.0-47.0) % MCHC 31.6 L (32-36) g/dl RDW 15.0 H (11.5-14.5) % BUN 41 H (7-17) mg/dL Creatinine 1.2 H (0.52-1.04) mg/dL Calcium 8.4 L (8.5-10.1) mg/dL Total Protein 5.7 L (6.3-8.2) gm/dL Albumin 3.0 L (3.5-5.0) gm/dL Condition at Discharge: (2) Stable Discharge Medications - Discharge Medications Prescriptions: Docusate Sodium [Colace] 100 mg PO DAILY #90 cap Ibuprofen [Motrin 600Mg] 600 mg PO Q6H PRN 120 Days PRN Reason: Pain - General Home Medications: Ambulatory Orders Acetaminophen [Tylenol 500Mg Tab] 1,000 mg PO Q6H PRN #0 tablet 07/13/16 [Last Taken Unknown] Aspirin Enteric-Coated [Ecotrin (EC)] 81 mg PO DAILY tabec 07/13/16 [Last Taken Unknown] Docusate Sodium [Colace] 100 mg PO DAILY #90 cap 08/29/16 [Last Taken Unknown] Ibuprofen [Motrin 600Mg] 600 mg PO Q6H PRN 120 Days 08/29/16 [Last Taken Unknown ] Discharge Plan - Discharge Instructions Activity at Discharge: As Per Physical Therapy Diet at Discharge: Regular Diet Additional Instructions: -Home Health Services-RN, PT, OT, RESILIENT TILE INSTALLER, SCHOOL BUSINESS ADMINISTRATOR, Nurse Alert-[facility] [phone]. Confirmed referral received and accepted. -[facility] [phone]. Left vm message with referral information 08/23/16 and attempted follow up call on 08/29/16 with no answer. Recommend family call on 08/29 or 08/30 to initiate service request. -[facility] [phone]. Intake form with direct Field Evidence Technician name and number provided to pts daughter. -[facility] confirmed they will be working to establish Visiting Physician-PCP services.
[2016-08-28] MEDS ORDERED: ONDANSETRON 4 MG ODT TABLET SL PRN (20:51)
[2016-08-29] MEDS: PANTOPRAZOLE SODIUM 40 MG TABLET PO SCH (06:20)
[2016-08-29] MEDS: ASPIRIN 81 MG TABEC PO SCH (10:04)
[2016-08-29] MEDS: DOCUSATE SODIUM 100 MG CAPSULE PO SCH (10:04)
--- NOTE | 2016-08-29 14:59 | Rehab Discharge Summary ---
Patient Information - Patient Information Diagnosis: Fall, Atrial Fibrillation, Dehydration Ordered Treatment: OT Evaluate and Treat History: Detail (Patient admitted to on 07/13/16 for further functional improvment and strengthening in order to return home safely.) Past Med/Umesh Hx Detail: Detail (Pt received pin insertion through R hip w/ pins now placing pressure through acetabulum causing increased pain during sit<> stand t/f's.) Past Medical/Surgical Hx: PAST MEDICAL/SURGICAL HISTORY Past Surgical History R Hip surgery with pins placed 2004; Upper back surgery-non malignant tumor-spine? ; PMH - Respiratory Hx Respiratory Disorders No PMH - Cardiovascular Hx Cardiovascular Disorders No Comment: A-Fib found today/unknown onset PMH - Neuro Hx Neurological Disorders No PMH - GI Hx Gastrointestinal Disorders No PMH - Hx Genitourinary Disorders No Patient No PMH - Endocrine Hx Endocrine Disorders No PMH - Musculoskeletal Hx Musculoskeletal Disorders Yes Hx Arthritis Yes PMH - Psych Hx Psychiatric Problems No PMH - Hematology/Oncology Hx Hematology/Oncology No Disorders Premorbid Status: Detail (Patient reports to have fallen in driveway in past that resulted in hip replacement. Patient reports that she was doing well after hip sx and was able to complete all ADL's prior to admission.) Social History: Detail (Patient lives alone in a 2 story farmhouse with 40 acres. She has 2 steps to enter with a railing on one side. Bedroom and bathroom are on main floor of home. She has a tub/shower combo with shower chair but usually stands to shower. There are no grab bars in bathroom and patient has a standard toilet. Ambulates using quad cane at home but started using 2 canes to amb within the home. Patient reports she was ind w/ all home mgmt, meal prep, and laundry. She has 1 daughter who is willing to assist if needed but prefers to remain ind.) Precautions: [place], Fall Objective Data - Pain Pain Present: Yes (back pain intermittently) - Mental Status Patient Orientation: Oriented x3 - Visual Perception Appears within normal limits for therapeutic activities (Pt uses magnifying glass to read) - ROM Within normal limits (Shivam UE AROM grossly WNL) - Strength/Tone Within normal limits (Shivam UE MMT 4 to 4+/5) - Coordination Appears within normal limits for therapeutic activities - Bed Mobility Independent (Ind with use of hospital bed, HOB raised and with use of hand rails.) - Transfers Independent (Ind from raised surfaces, occasional assist needed from standard height surfaces.) - Balance Balance Sitting: Good Balance Standing: Fair - Sensation Intact - Gait Detail (Pt able to ambulate short distances with 2 wheeled walker.) - ADL's/IADL's Detail (Ind with UE dressing, modified Ind with LE dressing using practical nursing faculty and sock aid, Ind with grooming/hygiene, showers on commode seat with use of grab bars and will require use of long bath sponge for feet and lower legs.) Therapy Assessment - Therapy Assessment Detail (Pt is able to demonstrate independence with self care activities using adaptive equipment, she requires elevated surfaces for safe and Ind transfers. She has demonstrated Ind with UE HEP using putty and theraband.) Problem List - Problem List Physical Therapy Problem List: Detail (1) LE weakness 2) Loss of LE ROM 3) Assistance with transfers and bed mobility 4) Limited ambulation distance and transfers 5) Impaired Balance) Occupational Therapy Problem List: Detail (1. decreased ind w/ ADLs 2. weakness BUE 3. decreased ind w/ bed mob 4. decreased endurance) Goals - Goals Physical Therapy Goals: 1) The patient will ambulate independently /supervision with wheeled walker distances of 150 feet plus. 2) The patient will be independent with alltransfers. 3) The patient will safely ambulate 2 stairs with CG of 1. 4) Increase LE strength by 1/3 to 1 full muscle grade. 5) Formally assess the patient's balance if tolerated. Occupational Therapy Goals: Goals Met: 1. Pt to be ind w/ toileting. 2. Pt to be ind w/ LB drsg with AD if needed. 3. Pt to be ind to walk household distances using 2WW. 4. Pt to be ind w/ bed mobility. 5. Pt to be grossly 4/5 MMT BUE within available ROM Prognosis - Prognosis Good Plan - Plan Physical Therapy Plan: PT M-F 1 to 2 times a day for LE strengthening, ROM and balance exercises, transfer training, bed mobility and gait training. Occupational Therapy Plan: Discharge home with home OT/PT, meals on wheels.
--- NOTE | 2016-08-29 16:20 | Physical Therapy Tx Note ---
Physical Therapy Tx Note - Treatment Note Tolerated: Fair Total Time Spent With Patient: 15 Physical Therapy Tx Note: Detail (The patient completed a car transfer with verbal cues and CG of 1. Patient's daughter and her boyfriend were present for treatment.) Physical Therapy Problem List: Detail (1) LE weakness 2) Loss of LE ROM 3) Assistance with transfers and bed mobility 4) Limited ambulation distance and transfers 5) Impaired Balance) Physical Therapy Goals: 1) The patient will ambulate independently /supervision with wheeled walker distances of 150 feet plus. 2) The patient will be independent with alltransfers. 3) The patient will safely ambulate 2 stairs with CG of 1. 4) Increase LE strength by 1/3 to 1 full muscle grade. 5) Formally assess the patient's balance if tolerated. Physical Therapy Plan: PT M-F 1 to 2 times a day for LE strengthening, ROM and balance exercises, transfer training, bed mobility and gait training.
--- NOTE | 2016-08-29 17:48 | Rehab Discharge Summary ---
Patient Information - Patient Information Diagnosis: Fall, Atrial Fibrillation, Dehydration Ordered Treatment: PT Evaluate and Treat History: Detail (Patient admitted to on 07/13/16 for further functional improvment and strengthening in order to return home safely.) Past Med/Umesh Hx Detail: Detail (Pt received pin insertion through R hip w/ pins now placing pressure through acetabulum causing increased pain during sit<> stand t/f's.) Past Medical/Surgical Hx: PAST MEDICAL/SURGICAL HISTORY Past Surgical History R Hip surgery with pins placed 2004; Upper back surgery-non malignant tumor-spine? ; PMH - Respiratory Hx Respiratory Disorders No PMH - Cardiovascular Hx Cardiovascular Disorders No Comment: A-Fib found today/unknown onset PMH - Neuro Hx Neurological Disorders No PMH - GI Hx Gastrointestinal Disorders No PMH - Hx Genitourinary Disorders No Patient No PMH - Endocrine Hx Endocrine Disorders No PMH - Musculoskeletal Hx Musculoskeletal Disorders Yes Hx Arthritis Yes PMH - Psych Hx Psychiatric Problems No PMH - Hematology/Oncology Hx Hematology/Oncology No Disorders Premorbid Status: Detail (Patient reports to have fallen in driveway in past that resulted in hip replacement. Patient reports that she was doing well after hip sx and was able to complete all ADL's prior to admission.) Social History: Detail (Patient lives alone in a 2 story farmhouse with 40 acres. She has 2 steps to enter with a railing on one side. Bedroom and bathroom are on main floor of home. She has a tub/shower combo with shower chair but usually stands to shower. There are no grab bars in bathroom and patient has a standard toilet. Ambulates using quad cane at home but started using 2 canes to amb within the home. Patient reports she was ind w/ all home mgmt, meal prep, and laundry. She has 1 daughter who is willing to assist if needed but prefers to remain ind.) Precautions: [place], Fall Subjective Information - Subjective Information Per Patient (The patient had occasional complaints of R and L thigh pain . The patient did not rate her pain using 0 to 10 pain scale.) Objective Data - Mental Status Patient Orientation: Oriented x3 (The patient became agitated at times, ie: not wanting anyone to gaurd her when ambulating.) - ROM Not within normal limits (The patient had severe limited ROM in R hip in all planes of movement.) - Strength/Tone Not within normal limits (LE strength: B hip adductors 4+/5, R Hip abductors 3+/ 5, L hip abductor 4/5, R hip flexors 4-/5, L hip flexors 4/5, B knee flexors 4-/ 5, B knee extensors 4+/5, B ankle dorsiflexors 4 +/5.) - Bed Mobility Independent (The patient was independent with supine to and from sit , and at times required several attempts.) - Transfers Independent (The patient was independent with sit to and from stand transfer from higher surfaces. The patient required occasional minimal to moderate PA of 1 from lower surfaces. The patient required supervision for safety with toilet transfer and CG for safety with car transfer.) - Balance Balance Sitting: Fair (The patient was able to sit without support, however due to decreased R hip ROM the patient sat in a lean back position.) Balance Standing: Fair (The patient was able to stand without support and pull up her pants, however occasional loss of balance was noted.) - Gait Detail (The patient ambulated with supervision with a wheeled walker a distance of 200 feet. The patient was independent propelling her wheelchair 300 feet plus.) Therapy Assessment - Therapy Assessment Detail (The patient completed all mobility with supervision and increased LE strength. The patient continues to require supervision for safety due to occasional requirement of assistance with sit to and from stand transfer due to hip ROM limitations. Raised surfaces at home for ease of transfers have been recommended as well as grab bars. The patient does have a hospital bed, walker and wheelchair.) Problem List - Problem List Physical Therapy Problem List: Detail (1) LE weakness 2) Loss of LE ROM 3) Assistance with transfers and bed mobility 4) Limited ambulation distance and transfers 5) Impaired Balance) Occupational Therapy Problem List: Detail (1. decreased ind w/ ADLs 2. weakness BUE 3. decreased ind w/ bed mob 4. decreased endurance) Goals - Goals Physical Therapy Goals: GOALS PARTIALLY MET: 1) The patient will ambulate independently /supervision with wheeled walker distances of 150 feet plus. 2) The patient will be independent with all. transfers. GOALS MET: 3) The patient will safely ambulate 2 stairs with CG of 1. 4) Increase LE strength by 1/3 to 1 full muscle grade. 5) Formally assess the patient's balance if tolerated. Occupational Therapy Goals: Goals Met: 1. Pt to be ind w/ toileting. 2. Pt to be ind w/ LB drsg with AD if needed. 3. Pt to be ind to walk household distances using 2WW. 4. Pt to be ind w/ bed mobility. 5. Pt to be grossly 4/5 MMT BUE within available ROM Plan - Plan Physical Therapy Plan: Patient was discharged to home and is to receive Home PT. Occupational Therapy Plan: Discharge home with home OT/PT, meals on wheels.
== END 2016-08-29 14:35 | disposition home health service (06) | DRG 948 ==
LOC: UNDOADMIN 14:27 → MEDSURG 14:27 → UNDOADMIN 07-30 17:58 → MEDSURG 07-30 17:58
PROVIDERS: ADMIT Family Medicine; ATTEND Family Medicine
DX: R53.1 Weakness (principal); S32.9XXA Fracture of unspecified parts of lumbosacral spine and pelvis, initial encounter for closed fracture; M25.551 Pain in right hip; I48.91 Unspecified atrial fibrillation; Z79.82 Long term (current) use of aspirin; R23.4 Changes in skin texture; L60.2 Onychogryphosis; Z78.9 Other specified health status; W18.39XA Other fall on same level, initial encounter; Z91.81 History of falling; Y92.230 Patient room in hospital as the place of occurrence of the external cause
CPT/HCPCS: 72170; 80053; 85025; 97001; 97003; 97110; 97530; 97535; 99223; 99233; 99239